=== PATIENT | female | born 1985 | race Caucasian/White ===

== ENCOUNTER 2020-06-25 19:19 | Emergency (ER) | payer MEDICARE, OTHER ==
[~2020-06-25] VITALS: Ht 147.3 cm; Wt 43.1 kg
[~2020-06-25 19:19] MED LIST: ALBU90OI6 INH; LEVSOD75 PO; OXYC5 PO; VITAMIN D-32000 UNI1 PO
[2020-06-25 20:24] LABS: BASOPHILS ABSOLUTE AUTO 0.04 K/mm3 (0.00-0.23); BASOPHILS PERCENT AUTO 0 % (0-2); EOSINOPHILS ABSOLUTE AUTO 0.19 K/mm3 (0.00-0.68); EOSINOPHILS PERCENT AUTO 2 % (0-6); Hematocrit 40.7 % (33.0-51.0); Hemoglobin 14.1 g/dL (11.5-16.0); IMMATURE GRAN ABSOLUTE AUTO 0.04 K/mm3 (0.00-0.10); IMMATURE GRAN PERCENT AUTO 0 % (0-1); LYMPHOCYTES ABSOLUTE AUTO 2.35 K/mm3 (0.84-5.20); LYMPHOCYTES PERCENT AUTO 24 % (21-46); MONOCYTES ABSOLUTE AUTO 0.47 K/mm3 (0.16-1.47); MONOCYTES PERCENT AUTO 5 % (4-13); Mean Corpuscular HGB 31.8 pg (26.0-34.0); Mean Corpuscular HGB Conc 34.6 g/dL (31.5-36.5); Mean Corpuscular Volume 92 fL (80-100); Mean Platelet Volume 8.9 fL (9.1-12.4); NEUTROPHILS ABSOLUTE AUTO 6.93 K/mm3 (1.96-9.15); NEUTROPHILS PERCENT AUTO 69 % (41-73); Platelet Count 288 K/mm3 (150-400); RDW Standard Deviation 43.3 fL (35.1-46.3); Red Blood Cell Count 4.44 M/mm3 (3.80-5.20); White Blood Cell Count 10.02 K/mm3 (4.00-11.30)
[2020-06-25] MEDS ORDERED: MONT10T PO (20:24)
[2020-06-25 20:40] LABS: Anion Gap 4 mmol/L (6-16); Blood Urea Nitrogen 8 mg/dL (8-24); Bun/Creatinine Ratio 11.5 (12.0-20.0); CO2, Blood 31 mmol/L (21-32); Calcium, Blood 9.6 mg/dL (8.5-10.1); Chloride, Blood 103 mmol/L (98-108); Creatinine, Blood 0.69 mg/dL (0.40-1.00); Glomerular Filtration Rate >60 (60-); Glucose, Blood 63 mg/dL (70-99); Potassium, Blood 3.2 mmol/L (3.5-5.5); Sodium, Blood 138 mmol/L (136-145)
== END 2020-06-25 21:45 | disposition home or self-care (01) ==
LOC: ER 19:19
PROVIDERS: Emergency Medicine
DX: K62.5 Hemorrhage of anus and rectum (principal); Z79.899 Other long term (current) drug therapy
CPT/HCPCS: 36415; 80048; 85025; 86850; 86900; 86901; 99283

== ENCOUNTER 2020-06-26 19:27 | Emergency (ER) | payer MEDICARE, OTHER ==
[~2020-06-26] VITALS: Ht 147.3 cm; Wt 43.5 kg
[~2020-06-26 19:27] MED LIST changes: +MONT10T PO
[2020-06-26 20:11] LABS: BASOPHILS ABSOLUTE AUTO 0.04 K/mm3 (0.00-0.23); BASOPHILS PERCENT AUTO 0 % (0-2); EOSINOPHILS ABSOLUTE AUTO 0.17 K/mm3 (0.00-0.68); EOSINOPHILS PERCENT AUTO 2 % (0-6); Hematocrit 35.6 % (33.0-51.0); Hemoglobin 12.4 g/dL (11.5-16.0); IMMATURE GRAN ABSOLUTE AUTO 0.04 K/mm3 (0.00-0.10); IMMATURE GRAN PERCENT AUTO 0 % (0-1); LYMPHOCYTES ABSOLUTE AUTO 2.04 K/mm3 (0.84-5.20); LYMPHOCYTES PERCENT AUTO 22 % (21-46); MONOCYTES PERCENT AUTO 5 % (4-13); Mean Corpuscular HGB 31.2 pg (26.0-34.0); Mean Corpuscular HGB Conc 34.8 g/dL (31.5-36.5); Mean Corpuscular Volume 90 fL (80-100); Mean Platelet Volume 8.9 fL (9.1-12.4); NEUTROPHILS ABSOLUTE AUTO 6.55 K/mm3 (1.96-9.15); NEUTROPHILS PERCENT AUTO 70 % (41-73); Platelet Count 268 K/mm3 (150-400); RDW Coefficient Variation 12.9 % (11.7-14.2); Red Blood Cell Count 3.97 M/mm3 (3.80-5.20); White Blood Cell Count 9.34 K/mm3 (4.00-11.30)
[2020-06-26 21:11] LABS: Alanine Aminotransfer (ALT/SGP 34 U/L (12-78); Aspartate Aminotrans (AST/SGOT 18 U/L (12-37)
[2020-06-26 21:24] LABS: Albumin/Globulin Ratio 1.2 (0.8-1.8); Alk Phos 116 U/L (50-136); Anion Gap 3 mmol/L (6-16); Bilirubin, Total 0.3 mg/dL (0.1-1.0); Blood Urea Nitrogen 9 mg/dL (8-24); Bun/Creatinine Ratio 14.2 (12.0-20.0); CO2, Blood 27 mmol/L (21-32); Calcium, Blood 8.8 mg/dL (8.5-10.1); Chloride, Blood 105 mmol/L (98-108); Creatinine, Blood 0.63 mg/dL (0.40-1.00); Globulin, Blood 3.4 g/dL (2.2-4.0); Glomerular Filtration Rate >60 (60-); Glucose, Blood 91 mg/dL (70-99); Potassium, Blood 3.4 mmol/L (3.5-5.5); Sodium, Blood 135 mmol/L (136-145); Total Protein, Blood 7.4 g/dL (6.4-8.2)
== END 2020-06-26 21:30 | disposition home or self-care (01) ==
LOC: ER 19:27
PROVIDERS: Physician Assistant
DX: K91.840 Postprocedural hemorrhage of a digestive system organ or structure following a digestive system procedure (principal); K62.5 Hemorrhage of anus and rectum; Z88.5 Allergy status to narcotic agent; Z88.8 Allergy status to other drugs, medicaments and biological substances
CPT/HCPCS: 36415; 80053; 85025; 99283; A9270-GY

== ENCOUNTER 2021-01-17 18:46 | Emergency (ER) | payer OTHER ==
[~2021-01-17] VITALS: Ht 147.3 cm; Wt 45.4 kg
== END 2021-01-17 20:06 | disposition home or self-care (01) ==
LOC: ER 18:46
DX: S50.02XA Contusion of left elbow, initial encounter (principal); Z88.8 Allergy status to other drugs, medicaments and biological substances; Z88.5 Allergy status to narcotic agent; Z79.899 Other long term (current) drug therapy; Z87.891 Personal history of nicotine dependence; W50.0XXA Accidental hit or strike by another person, initial encounter
CPT/HCPCS: 71046; 73080; 96372; 99283-25; J1885

== ENCOUNTER 2021-12-20 18:25 | Inpatient (IN) | payer OTHER ==
[~2021-12-20] VITALS: Ht 147.3 cm; Wt 39.9 kg
[2021-12-20 18:57] LABS: BASOPHILS ABSOLUTE AUTO 0.05 K/mm3 (0.00-0.23); BASOPHILS PERCENT AUTO 0 % (0-2); EOSINOPHILS ABSOLUTE AUTO 0.11 K/mm3 (0.00-0.68); EOSINOPHILS PERCENT AUTO 1 % (0-6); Hemoglobin 17.1 g/dL (11.5-16.0); IMMATURE GRAN ABSOLUTE AUTO 0.08 K/mm3 (0.00-0.10); IMMATURE GRAN PERCENT AUTO 1 % (0-1); LYMPHOCYTES ABSOLUTE AUTO 1.29 K/mm3 (0.84-5.20); LYMPHOCYTES PERCENT AUTO 9 % (21-46); MONOCYTES ABSOLUTE AUTO 0.72 K/mm3 (0.16-1.47); MONOCYTES PERCENT AUTO 5 % (4-13); Mean Corpuscular HGB 30.5 pg (26.0-34.0); Mean Corpuscular HGB Conc 34.2 g/dL (31.5-36.5); Mean Corpuscular Volume 89 fL (80-100); Mean Platelet Volume 8.6 fL (9.1-12.4); NEUTROPHILS ABSOLUTE AUTO 12.08 K/mm3 (1.96-9.15); NEUTROPHILS PERCENT AUTO 84 % (41-73); Platelet Count 327 K/mm3 (150-400); RDW Coefficient Variation 13.2 % (11.7-14.2); RDW Standard Deviation 43.4 fL (35.1-46.3); White Blood Cell Count 14.33 K/mm3 (4.00-11.30)
[2021-12-20 19:10] LABS: Albumin, Blood 4.6 g/dL (3.4-5.0); Albumin/Globulin Ratio 0.9 (0.8-1.8); Bilirubin, Total 0.4 mg/dL (0.1-1.0); Bun/Creatinine Ratio 20.3 (12.0-20.0); Calcium, Blood 10.4 mg/dL (8.5-10.1); Creatinine, Blood 1.38 mg/dL (0.40-1.00); Globulin, Blood 4.9 g/dL (2.2-4.0); Potassium, Blood 4.4 mmol/L (3.5-5.5); Total Protein, Blood 9.5 g/dL (6.4-8.2)
[2021-12-20 20:30] LABS: Magnesium, Blood 2.2 mg/dL (1.6-2.4); Phosphorus, Blood 4.9 mg/dL (2.5-4.9)
[2021-12-20 20:44] LABS: Source, Urine Clean Catch
[2021-12-20 21:03] LABS: Appearance, Urine Hazy (Clear); Bilirubin, Urine Neg (Neg); Blood, Urine 5+ (Neg); Color, Urine Yellow (P-Yellow); Glucose Qualitative, Urine Neg (Neg); Ketones, Urine Neg (Neg); Leukocyte Esterase, Urine 3+ (Neg); Nitrite, Urine Neg (Neg); Protein, Urine 2+ (Neg); Urobilinogen, Urine NORM (Normal)
[2021-12-20 21:14] LABS: Hyaline Casts TNTC /lpf (0-2)
[2021-12-20 21:15] LABS: Bacteria Mod /hpf; Renal Epithelial Mod /hpf (0-Rare); Squamous Epithelial Cells Few /hpf (Few); White Blood Cells, Urine 50-100 /hpf (0-5)
[2021-12-20 21:16] LABS: Transitional Epithelial Cells Rare /hpf (0-Rare)
--- NOTE | 2021-12-21 02:10 | NUR ---
NOTE CALLED DR. ASKEW ABOUT PT BP OF 85/46. ORDER GIVEN TO GIVE PT A 1 LITER BOLUS OF NS PER
--- NOTE | 2021-12-21 03:31 | NUR ---
NOTE NS BOLUS COMPLETE. BLOOD PRESSURE UP TO 88/49. PT UP TO BEDSIDE COMMODE WITHOUT INCIDENT WITH A STANDBY ASSIST.
--- NOTE | 2021-12-21 04:40 | NUR ---
SHIFT SUMMARY REPORT FROM MATTY GAUTAM AT 2237. PT TO ROOM AROUND 2300. PT ADMITTED FOR LEG MUSCLE SPASMS AND A UTI. PT HAS NS AT 150/HR. PT BP HAS BEEN RUNNING LOW, DR. VICENTE (SEE PREVIOUS NOTE). PT IS PLEASANT AND COOPERATIVE WITH CARE. PT HAS NOT EATEN ANYTHING OF SUBSTANCE IN AT LEAST A DAY. SHE IS STARTING TO FEEL HUNGRY BUT IS AFRAID TO EAT BECAUSE OF HER DIARRHEA THAT HAS BEEN HAPPENING FOR THE LAST MONTH. PT HAS OSTOMY AND A HX OF CANCER. PT HAS CALL LIGHT WITHIN HER REACH AND HAS NO COMPLAINTS AT THIS TIME.
[2021-12-21 06:07] LABS: Magnesium, Blood 2.2 mg/dL (1.6-2.4)
[2021-12-21 06:11] LABS: Bun/Creatinine Ratio 21.1 (12.0-20.0); Calcium, Blood 7.7 mg/dL (8.5-10.1); Creatinine, Blood 0.9 mg/dL (0.40-1.00); Potassium, Blood 3.8 mmol/L (3.5-5.5)
--- NOTE | 2021-12-21 18:09 | NUR ---
SUMMARY PT SITTING UP IN BED EATING DINNER, PT HAS HAD A POOR APPETITE T/O THE DAY, MED PER EMAR FOR LOW GRADE TEMP AND PAIN, PT INDEP TO BSC, PLEASANT AND COOPERATIVE WITH CARE, WILL CONT TO MONITOR
[2021-12-22 05:22] LABS: Hematocrit 40.8 % (33.0-51.0); Mean Corpuscular HGB 30.4 pg (26.0-34.0); Mean Corpuscular HGB Conc 34.3 g/dL (31.5-36.5); Mean Corpuscular Volume 89 fL (80-100); Platelet Count 229 K/mm3 (150-400); RDW Coefficient Variation 13.2 % (11.7-14.2); RDW Standard Deviation 43.2 fL (35.1-46.3); Red Blood Cell Count 4.61 M/mm3 (3.80-5.20); White Blood Cell Count 5.89 K/mm3 (4.00-11.30)
[2021-12-22 05:59] LABS: Albumin, Blood 3.2 g/dL (3.4-5.0); Anion Gap 10 mmol/L (6-16); Blood Urea Nitrogen 18 mg/dL (8-24); Bun/Creatinine Ratio 22.4 (12.0-20.0); CO2, Blood 22 mmol/L (21-32); Calcium, Blood 9.3 mg/dL (8.5-10.1); Chloride, Blood 106 mmol/L (98-108); Glomerular Filtration Rate 98 (60-); Glucose, Blood 56 mg/dL (70-99); Phosphorus, Blood 2.3 mg/dL (2.5-4.9); Potassium, Blood 3.5 mmol/L (3.5-5.5); Sodium, Blood 138 mmol/L (136-145)
--- NOTE | 2021-12-22 06:07 | NUR ---
SHIFT SUMMARY PATIENT DENIES PAIN, NAUSEA, AND SHORTNESS OF BREATH. PATIENT IS IND IN THE ROOM. PATIENT MANAGES HER OWN OSTOMY. PATIENT SLEPT MOST OF SHIFT. PATIENT HAS POOR PO INTAKE. PATIENT IS PLEASANT AND COOPERATIVE WITH CARE.
[2021-12-22] MEDS ORDERED: MULVITA PO (12:03)
[2021-12-22] MEDS ORDERED: Acetaminophen325 M1 PO (12:03)
[2021-12-22] MEDS ORDERED: LOPE2C PO (12:04)
--- NOTE | 2021-12-22 14:12 | NUR ---
SUMMARY/DISCHARGE PT DISCHARGED TO HOME, PT VERBALZED UNDERSTANDING OF DISCHARGE INSTRUCTIONS REGARDING MEDS AND FOLLOW UP, PT TAKEN OUT SAFELY VIA WHEELCHAIR
== END 2021-12-22 12:51 | disposition home or self-care (01) | DRG 641 ==
LOC: ER 18:25 → MEDS 18:26
PROVIDERS: Emergency Medicine; Internal Medicine; ADMIT Internal Medicine
DX: E87.1 Hypo-osmolality and hyponatremia (principal); N39.0 Urinary tract infection, site not specified; R65.10 Systemic inflammatory response syndrome (SIRS) of non-infectious origin without acute organ dysfunction; N17.9 Acute kidney failure, unspecified; E86.0 Dehydration; R51.9 Headache, unspecified; R19.7 Diarrhea, unspecified; E89.0 Postprocedural hypothyroidism; Z87.891 Personal history of nicotine dependence; Z85.038 Personal history of other malignant neoplasm of large intestine; Z88.5 Allergy status to narcotic agent; Z90.49 Acquired absence of other specified parts of digestive tract; Z88.8 Allergy status to other drugs, medicaments and biological substances; Z79.899 Other long term (current) drug therapy; Z79.51 Long term (current) use of inhaled steroids; Z86.010 Personal history of colon polyps; Z85.850 Personal history of malignant neoplasm of thyroid; Z85.841 Personal history of malignant neoplasm of brain; Z98.890 Other specified postprocedural states
CPT/HCPCS: 36415; 80048; 80053; 80069; 81001; 83735; 84100; 85025; 85027; 87086; 96365; 96375; 99285-25; A9270; G0378; J0696; J2405; J3360; J3475; J7030

== ENCOUNTER 2022-02-02 17:55 | Emergency (ER) | payer OTHER ==
[~2022-02-02] VITALS: Ht 147.3 cm; Wt 35.4 kg
[~2022-02-02 17:55] MED LIST changes: +Acetaminophen325 M1 PO; +LOPE2C PO; +MULVITA PO
[2022-02-02 18:31] LABS: BASOPHILS ABSOLUTE AUTO 0.03 K/mm3 (0.00-0.23); BASOPHILS PERCENT AUTO 0 % (0-2); EOSINOPHILS ABSOLUTE AUTO 0.15 K/mm3 (0.00-0.68); EOSINOPHILS PERCENT AUTO 2 % (0-6); Hemoglobin 13.8 g/dL (11.5-16.0); IMMATURE GRAN ABSOLUTE AUTO 0.03 K/mm3 (0.00-0.10); IMMATURE GRAN PERCENT AUTO 0 % (0-1); LYMPHOCYTES ABSOLUTE AUTO 2.36 K/mm3 (0.84-5.20); LYMPHOCYTES PERCENT AUTO 24 % (21-46); MONOCYTES ABSOLUTE AUTO 0.36 K/mm3 (0.16-1.47); MONOCYTES PERCENT AUTO 4 % (4-13); Mean Corpuscular HGB 30.5 pg (26.0-34.0); Mean Corpuscular HGB Conc 34.5 g/dL (31.5-36.5); Mean Corpuscular Volume 88 fL (80-100); Mean Platelet Volume 8.7 fL (9.1-12.4); NEUTROPHILS ABSOLUTE AUTO 7.07 K/mm3 (1.96-9.15); NEUTROPHILS PERCENT AUTO 71 % (41-73); Platelet Count 280 K/mm3 (150-400); RDW Coefficient Variation 13.5 % (11.7-14.2); RDW Standard Deviation 43.8 fL (35.1-46.3); Red Blood Cell Count 4.53 M/mm3 (3.80-5.20)
[2022-02-02 18:58] LABS: Albumin, Blood 3.6 g/dL (3.4-5.0); Bilirubin, Total 0.5 mg/dL (0.1-1.0); Bun/Creatinine Ratio 19.4 (12.0-20.0); Calcium, Blood 8.8 mg/dL (8.5-10.1); Creatinine, Blood 0.83 mg/dL (0.40-1.00); Globulin, Blood 3.7 g/dL (2.2-4.0); Potassium, Blood 4.5 mmol/L (3.5-5.5); Total Protein, Blood 7.3 g/dL (6.4-8.2)
[2022-02-02 19:54] LABS: Appearance, Urine Clear (Clear); Bilirubin, Urine Neg (Neg); Blood, Urine Neg (Neg); Color, Urine Yellow (P-Yellow); Glucose Qualitative, Urine Neg (Neg); Ketones, Urine Neg (Neg); Leukocyte Esterase, Urine Neg (Neg); Nitrite, Urine Neg (Neg); Protein, Urine Neg (Neg); Source, Urine Clean Catch; Specific Gravity, Urine 1.015 (1.003-1.022); Urobilinogen, Urine NORM (Normal)
== END 2022-02-02 21:46 | disposition home or self-care (01) ==
LOC: ER 17:55
PROVIDERS: Student in an Organized Health Care Education/Training Program
DX: E86.0 Dehydration (principal); Z88.5 Allergy status to narcotic agent; Z88.8 Allergy status to other drugs, medicaments and biological substances; Z79.899 Other long term (current) drug therapy; Z87.891 Personal history of nicotine dependence
CPT/HCPCS: 36415; 80053; 81003; 83690; 85025; J7030

== ENCOUNTER 2022-02-15 15:38 | Emergency (ER) | payer OTHER ==
[~2022-02-15] VITALS: Ht 147.3 cm; Wt 40.8 kg
[2022-02-15 16:49] LABS: BASOPHILS ABSOLUTE AUTO 0.02 K/mm3 (0.00-0.23); BASOPHILS PERCENT AUTO 0 % (0-2); EOSINOPHILS ABSOLUTE AUTO 0.06 K/mm3 (0.00-0.68); EOSINOPHILS PERCENT AUTO 1 % (0-6); Hematocrit 46.9 % (33.0-51.0); Hemoglobin 16.6 g/dL (11.5-16.0); IMMATURE GRAN ABSOLUTE AUTO 0.04 K/mm3 (0.00-0.10); IMMATURE GRAN PERCENT AUTO 1 % (0-1); LYMPHOCYTES ABSOLUTE AUTO 2.18 K/mm3 (0.84-5.20); LYMPHOCYTES PERCENT AUTO 30 % (21-46); MONOCYTES ABSOLUTE AUTO 0.35 K/mm3 (0.16-1.47); MONOCYTES PERCENT AUTO 5 % (4-13); Mean Corpuscular HGB 30.3 pg (26.0-34.0); Mean Corpuscular HGB Conc 35.4 g/dL (31.5-36.5); Mean Corpuscular Volume 86 fL (80-100); Mean Platelet Volume 9.2 fL (9.1-12.4); NEUTROPHILS ABSOLUTE AUTO 4.55 K/mm3 (1.96-9.15); NEUTROPHILS PERCENT AUTO 63 % (41-73); Platelet Count 282 K/mm3 (150-400); RDW Coefficient Variation 12.9 % (11.7-14.2); RDW Standard Deviation 40.4 fL (35.1-46.3); Red Blood Cell Count 5.48 M/mm3 (3.80-5.20)
[2022-02-15 17:24] LABS: Albumin/Globulin Ratio 1.1 (0.8-1.8); Bilirubin, Total 0.6 mg/dL (0.1-1.0); Bun/Creatinine Ratio 20.8 (12.0-20.0); Creatinine, Blood 1.06 mg/dL (0.40-1.00); Globulin, Blood 4.5 g/dL (2.2-4.0); Potassium, Blood 4.3 mmol/L (3.5-5.5); Total Protein, Blood 9.5 g/dL (6.4-8.2)
[2022-02-16] MEDS ORDERED: ONDA4ODT MM (02:29)
[2022-02-16] MEDS ORDERED: METO10 PO (02:29)
== END 2022-02-16 02:45 | disposition home or self-care (01) ==
LOC: ER 15:38
PROVIDERS: Student in an Organized Health Care Education/Training Program
DX: N17.9 Acute kidney failure, unspecified (principal); E86.0 Dehydration; E16.2 Hypoglycemia, unspecified; Z88.5 Allergy status to narcotic agent; Z88.8 Allergy status to other drugs, medicaments and biological substances; Z79.899 Other long term (current) drug therapy; Z87.891 Personal history of nicotine dependence
CPT/HCPCS: 36415; 80053; 82947; 83735; 85025; 96361; 96365; 96375; 99284-25; J1885; J2405; J3475; J7030; J7042

== ENCOUNTER 2022-03-21 04:42 | Day surgery (SDC) | payer OTHER ==
[~2022-03-21 04:42] MED LIST changes: +METO10 PO; +ONDA4ODT MM; +ONDA4ODT SL
[2022-03-21] MEDS ORDERED: MULVITA PO (10:17)
[2022-03-21] MEDS ORDERED: NYSTRIT TOP (10:17)
[2022-03-21] MEDS ORDERED: VITAMIN B-1250 MCG PO (10:17)
[2022-03-21] MEDS ORDERED: DIPATR PO (10:18)
== END 2022-03-21 10:06 | disposition home or self-care (01) ==
LOC: ATC 04:42
DX: E86.0 Dehydration (principal); Z93.2 Ileostomy status
CPT/HCPCS: 96360; J7030

== ENCOUNTER 2022-03-23 02:23 | Day surgery (SDC) | payer OTHER ==
[~2022-03-23 02:23] MED LIST changes: +DIPATR PO; +NYSTRIT TOP; +VITAMIN B-1250 MCG PO
== END 2022-03-23 10:58 | disposition home or self-care (01) ==
LOC: ATC 02:23
DX: E86.0 Dehydration (principal); Z93.2 Ileostomy status
CPT/HCPCS: J7030

== ENCOUNTER 2022-03-28 01:25 | Day surgery (SDC) | payer OTHER | END 2022-03-28 10:55 | disposition home or self-care (01) | LOC: ATC 01:25 | DX: E86.0 Dehydration (principal); Z93.2 Ileostomy status | CPT/HCPCS: J7030 ==

== ENCOUNTER 2022-03-30 01:51 | Day surgery (SDC) | payer OTHER | END 2022-03-30 10:41 | disposition home or self-care (01) | LOC: ATC 01:51 | DX: E86.0 Dehydration (principal); Z93.2 Ileostomy status | CPT/HCPCS: J7030 ==

== ENCOUNTER 2022-04-11 00:25 | Day surgery (SDC) | payer OTHER | END 2022-04-11 12:13 | disposition home or self-care (01) | LOC: ATC 00:25 | DX: E86.0 Dehydration (principal); Z93.2 Ileostomy status | CPT/HCPCS: J7030 ==

== ENCOUNTER 2022-04-13 00:32 | Day surgery (SDC) | payer OTHER ==
[2022-04-13 10:25] LABS: BASOPHILS ABSOLUTE AUTO 0.03 K/mm3 (0.00-0.23); BASOPHILS PERCENT AUTO 0 % (0-2); EOSINOPHILS ABSOLUTE AUTO 0.11 K/mm3 (0.00-0.68); EOSINOPHILS PERCENT AUTO 2 % (0-6); Hematocrit 33.1 % (33.0-51.0); Hemoglobin 11.5 g/dL (11.5-16.0); IMMATURE GRAN ABSOLUTE AUTO 0.03 K/mm3 (0.00-0.10); IMMATURE GRAN PERCENT AUTO 0 % (0-1); LYMPHOCYTES ABSOLUTE AUTO 2.01 K/mm3 (0.84-5.20); LYMPHOCYTES PERCENT AUTO 28 % (21-46); MONOCYTES ABSOLUTE AUTO 0.35 K/mm3 (0.16-1.47); MONOCYTES PERCENT AUTO 5 % (4-13); Mean Corpuscular HGB 30.7 pg (26.0-34.0); Mean Corpuscular HGB Conc 34.7 g/dL (31.5-36.5); Mean Corpuscular Volume 89 fL (80-100); Mean Platelet Volume 9.1 fL (9.1-12.4); NEUTROPHILS ABSOLUTE AUTO 4.64 K/mm3 (1.96-9.15); NEUTROPHILS PERCENT AUTO 65 % (41-73); Platelet Count 272 K/mm3 (150-400); RDW Coefficient Variation 14.3 % (11.7-14.2); RDW Standard Deviation 46.5 fL (35.1-46.3); Red Blood Cell Count 3.74 M/mm3 (3.80-5.20); White Blood Cell Count 7.17 K/mm3 (4.00-11.30)
[2022-04-13 11:03] LABS: Albumin, Blood 3.4 g/dL (3.4-5.0); Bilirubin, Total 0.4 mg/dL (0.1-1.0); Calcium, Blood 8.9 mg/dL (8.5-10.1); Creatinine, Blood 0.62 mg/dL (0.40-1.00); Globulin, Blood 3.3 g/dL (2.2-4.0); Potassium, Blood 3.8 mmol/L (3.5-5.5); Total Protein, Blood 6.7 g/dL (6.4-8.2)
--- NOTE | 2022-04-13 11:28 | NUR ---
LAB RESULTS FROM TODAY FAXED TO DR. DOMINGUEZ'S OFFICE.
== END 2022-04-13 10:29 | disposition home or self-care (01) ==
LOC: ATC 00:32
PROVIDERS: Colon & Rectal Surgery
DX: E86.0 Dehydration (principal); Z93.2 Ileostomy status
CPT/HCPCS: 80053; 85025; J7030

== ENCOUNTER 2022-04-20 00:19 | Day surgery (SDC) | payer OTHER ==
[2022-04-20 14:43] LABS: BASOPHILS ABSOLUTE AUTO 0.03 K/mm3 (0.00-0.23); BASOPHILS PERCENT AUTO 0 % (0-2); EOSINOPHILS ABSOLUTE AUTO 0.12 K/mm3 (0.00-0.68); EOSINOPHILS PERCENT AUTO 2 % (0-6); Hemoglobin 11.3 g/dL (11.5-16.0); IMMATURE GRAN ABSOLUTE AUTO 0.04 K/mm3 (0.00-0.10); IMMATURE GRAN PERCENT AUTO 1 % (0-1); LYMPHOCYTES ABSOLUTE AUTO 2.22 K/mm3 (0.84-5.20); LYMPHOCYTES PERCENT AUTO 28 % (21-46); MONOCYTES ABSOLUTE AUTO 0.43 K/mm3 (0.16-1.47); MONOCYTES PERCENT AUTO 6 % (4-13); Mean Corpuscular HGB Conc 34.2 g/dL (31.5-36.5); Mean Corpuscular Volume 90 fL (80-100); Mean Platelet Volume 8.9 fL (9.1-12.4); NEUTROPHILS ABSOLUTE AUTO 5.02 K/mm3 (1.96-9.15); NEUTROPHILS PERCENT AUTO 64 % (41-73); Platelet Count 258 K/mm3 (150-400); RDW Standard Deviation 46.8 fL (35.1-46.3); Red Blood Cell Count 3.65 M/mm3 (3.80-5.20); White Blood Cell Count 7.86 K/mm3 (4.00-11.30)
[2022-04-20 15:04] LABS: Albumin, Blood 3.4 g/dL (3.4-5.0); Bilirubin, Total 0.3 mg/dL (0.1-1.0); Bun/Creatinine Ratio 6.6 (12.0-20.0); Calcium, Blood 8.6 mg/dL (8.5-10.1); Creatinine, Blood 0.91 mg/dL (0.40-1.00); Globulin, Blood 3.3 g/dL (2.2-4.0); Potassium, Blood 3.6 mmol/L (3.5-5.5); Total Protein, Blood 6.7 g/dL (6.4-8.2)
== END 2022-04-20 14:45 | disposition home or self-care (01) ==
LOC: ATC 00:19
PROVIDERS: Colon & Rectal Surgery
DX: E86.0 Dehydration (principal); Z93.2 Ileostomy status
CPT/HCPCS: 80053; 85025; J7030

== ENCOUNTER 2022-04-25 00:17 | Day surgery (SDC) | payer OTHER | END 2022-04-25 10:44 | disposition home or self-care (01) | LOC: ATC 00:17 | DX: E86.0 Dehydration (principal); Z93.2 Ileostomy status | CPT/HCPCS: 96360; J7030 ==

== ENCOUNTER 2022-05-05 00:52 | Day surgery (SDC) | payer OTHER ==
--- NOTE | 2022-05-05 12:03 | NUR ---
Pt did not show for her appointment at 0930 in the [facility] today.
[2022-05-08] MEDS ORDERED: AMOCLA875 PO (12:38)
[2022-05-08] MEDS ORDERED: AMOCLA600S PO ×2 (15:23→16:57)
== END 2022-05-05 23:59 | disposition home or self-care (01) ==
LOC: ATC 00:52
DX: E86.0 Dehydration (principal); Z93.2 Ileostomy status; K21.9 Gastro-esophageal reflux disease without esophagitis; Z87.891 Personal history of nicotine dependence; Z79.899 Other long term (current) drug therapy
CPT/HCPCS: J7030

== ENCOUNTER 2022-05-09 02:27 | Day surgery (SDC) | payer OTHER ==
[~2022-05-09 02:27] MED LIST changes: +AMOCLA600S PO; +AMOCLA875 PO
== END 2022-05-09 10:45 | disposition home or self-care (01) ==
LOC: ATC 02:27
DX: E86.0 Dehydration (principal); Z93.2 Ileostomy status
CPT/HCPCS: 96360; J1642; J7030

== ENCOUNTER 2022-05-11 13:21 | Emergency (ER) | payer OTHER ==
[~2022-05-11] VITALS: Ht 147.3 cm; Wt 39.9 kg
[2022-05-11 13:57] LABS: BASOPHILS ABSOLUTE AUTO 0.06 K/mm3 (0.00-0.23); BASOPHILS PERCENT AUTO 1 % (0-2); EOSINOPHILS ABSOLUTE AUTO 0.38 K/mm3 (0.00-0.68); EOSINOPHILS PERCENT AUTO 5 % (0-6); Hematocrit 40.6 % (33.0-51.0); Hemoglobin 13.8 g/dL (11.5-16.0); IMMATURE GRAN ABSOLUTE AUTO 0.06 K/mm3 (0.00-0.10); IMMATURE GRAN PERCENT AUTO 1 % (0-1); LYMPHOCYTES ABSOLUTE AUTO 2.38 K/mm3 (0.84-5.20); LYMPHOCYTES PERCENT AUTO 31 % (21-46); MONOCYTES ABSOLUTE AUTO 0.37 K/mm3 (0.16-1.47); MONOCYTES PERCENT AUTO 5 % (4-13); Mean Corpuscular HGB 30.4 pg (26.0-34.0); Mean Corpuscular Volume 89 fL (80-100); Mean Platelet Volume 8.7 fL (9.1-12.4); NEUTROPHILS ABSOLUTE AUTO 4.56 K/mm3 (1.96-9.15); NEUTROPHILS PERCENT AUTO 58 % (41-73); Platelet Count 367 K/mm3 (150-400); RDW Coefficient Variation 13.5 % (11.7-14.2); RDW Standard Deviation 44.4 fL (35.1-46.3); Red Blood Cell Count 4.54 M/mm3 (3.80-5.20); White Blood Cell Count 7.81 K/mm3 (4.00-11.30)
[2022-05-11 14:16] LABS: Albumin/Globulin Ratio 0.9 (0.8-1.8); Bilirubin, Total 0.2 mg/dL (0.1-1.0); Bun/Creatinine Ratio 23.1 (12.0-20.0); C-REACTIVE PROTEIN, EXT RANGE 0.527 mg/dL (0.000-0.300); Calcium, Blood 9.8 mg/dL (8.5-10.1); Creatinine, Blood 0.82 mg/dL (0.40-1.00); Globulin, Blood 4.6 g/dL (2.2-4.0); Potassium, Blood 3.9 mmol/L (3.5-5.5); Total Protein, Blood 8.6 g/dL (6.4-8.2)
== END 2022-05-11 17:11 | disposition home or self-care (01) ==
LOC: ER 13:21
PROVIDERS: Physician Assistant
DX: L02.31 Cutaneous abscess of buttock (principal); Z79.890 Hormone replacement therapy; Z79.899 Other long term (current) drug therapy; Z88.5 Allergy status to narcotic agent; Z88.8 Allergy status to other drugs, medicaments and biological substances; Z87.891 Personal history of nicotine dependence
CPT/HCPCS: 36415; 80053; 85025; 86140; 96365; 99283-25; J0690

== ENCOUNTER 2022-05-14 00:42 | Day surgery (SDC) | payer OTHER ==
[2022-05-14 09:51] LABS: BASOPHILS ABSOLUTE AUTO 0.05 K/mm3 (0.00-0.23); BASOPHILS PERCENT AUTO 1 % (0-2); EOSINOPHILS ABSOLUTE AUTO 0.37 K/mm3 (0.00-0.68); EOSINOPHILS PERCENT AUTO 4 % (0-6); Hematocrit 41.8 % (33.0-51.0); Hemoglobin 14.5 g/dL (11.5-16.0); IMMATURE GRAN ABSOLUTE AUTO 0.07 K/mm3 (0.00-0.10); IMMATURE GRAN PERCENT AUTO 1 % (0-1); LYMPHOCYTES ABSOLUTE AUTO 3.57 K/mm3 (0.84-5.20); LYMPHOCYTES PERCENT AUTO 38 % (21-46); MONOCYTES ABSOLUTE AUTO 0.44 K/mm3 (0.16-1.47); MONOCYTES PERCENT AUTO 5 % (4-13); Mean Corpuscular HGB 30.7 pg (26.0-34.0); Mean Corpuscular HGB Conc 34.7 g/dL (31.5-36.5); Mean Corpuscular Volume 89 fL (80-100); Mean Platelet Volume 8.8 fL (9.1-12.4); NEUTROPHILS ABSOLUTE AUTO 5.03 K/mm3 (1.96-9.15); NEUTROPHILS PERCENT AUTO 53 % (41-73); Platelet Count 404 K/mm3 (150-400); RDW Coefficient Variation 13.2 % (11.7-14.2); RDW Standard Deviation 43.3 fL (35.1-46.3); Red Blood Cell Count 4.72 M/mm3 (3.80-5.20); White Blood Cell Count 9.53 K/mm3 (4.00-11.30)
[2022-05-14 10:47] LABS: Bilirubin, Total 0.5 mg/dL (0.1-1.0); Potassium, Blood 4.4 mmol/L (3.5-5.5)
[2022-05-14 19:25] LABS: Albumin, Blood 4.1 g/dL (3.4-5.0); Bun/Creatinine Ratio 22.3 (12.0-20.0); Calcium, Blood 9.7 mg/dL (8.5-10.1); Creatinine, Blood 0.94 mg/dL (0.40-1.00); Globulin, Blood 4.3 g/dL (2.2-4.0); Total Protein, Blood 8.4 g/dL (6.4-8.2)
== END 2022-05-14 10:32 | disposition home or self-care (01) ==
LOC: ATC 00:42
PROVIDERS: Colon & Rectal Surgery
DX: R19.7 Diarrhea, unspecified (principal); Z93.2 Ileostomy status; D50.9 Iron deficiency anemia, unspecified
CPT/HCPCS: 80053; 85025; 96360; J1642; J7030

== ENCOUNTER 2022-05-16 02:16 | Day surgery (SDC) | payer OTHER | END 2022-05-16 10:31 | disposition home or self-care (01) | LOC: ATC 02:16 | DX: R19.7 Diarrhea, unspecified (principal); Z93.2 Ileostomy status; Z87.891 Personal history of nicotine dependence; Z88.5 Allergy status to narcotic agent; Z88.8 Allergy status to other drugs, medicaments and biological substances | CPT/HCPCS: 96360; J1642; J7030 ==

== ENCOUNTER 2022-05-23 09:40 | Day surgery (SDC) | payer OTHER ==
--- NOTE | 2022-05-18 10:34 | NUR ---
Pt rescheduled today's appointment for tomorrow.
--- NOTE | 2022-05-19 12:41 | NUR ---
NO CALL, NO SHOW FOR TODAY
== END 2022-05-23 11:14 | disposition home or self-care (01) ==
LOC: ATC 09:40
DX: D12.6 Benign neoplasm of colon, unspecified (principal); E03.9 Hypothyroidism, unspecified; Z88.5 Allergy status to narcotic agent; Z88.8 Allergy status to other drugs, medicaments and biological substances; Z91.048 Other nonmedicinal substance allergy status; Z79.899 Other long term (current) drug therapy; Z87.891 Personal history of nicotine dependence
CPT/HCPCS: 96360; J1642; J7030; J7120

== ENCOUNTER 2022-05-28 00:23 | Day surgery (SDC) | payer OTHER ==
[2022-05-28 12:07] LABS: BASOPHILS ABSOLUTE AUTO 0.03 K/mm3 (0.00-0.23); BASOPHILS PERCENT AUTO 0 % (0-2); EOSINOPHILS ABSOLUTE AUTO 0.12 K/mm3 (0.00-0.68); EOSINOPHILS PERCENT AUTO 1 % (0-6); Hematocrit 33.1 % (33.0-51.0); Hemoglobin 11.2 g/dL (11.5-16.0); IMMATURE GRAN ABSOLUTE AUTO 0.03 K/mm3 (0.00-0.10); IMMATURE GRAN PERCENT AUTO 0 % (0-1); LYMPHOCYTES ABSOLUTE AUTO 2.25 K/mm3 (0.84-5.20); LYMPHOCYTES PERCENT AUTO 26 % (21-46); MONOCYTES ABSOLUTE AUTO 0.37 K/mm3 (0.16-1.47); MONOCYTES PERCENT AUTO 4 % (4-13); Mean Corpuscular HGB 30.4 pg (26.0-34.0); Mean Corpuscular HGB Conc 33.8 g/dL (31.5-36.5); Mean Corpuscular Volume 90 fL (80-100); Mean Platelet Volume 9.3 fL (9.1-12.4); NEUTROPHILS ABSOLUTE AUTO 5.89 K/mm3 (1.96-9.15); NEUTROPHILS PERCENT AUTO 68 % (41-73); Platelet Count 318 K/mm3 (150-400); RDW Coefficient Variation 13.6 % (11.7-14.2); RDW Standard Deviation 45.2 fL (35.1-46.3); Red Blood Cell Count 3.68 M/mm3 (3.80-5.20); White Blood Cell Count 8.69 K/mm3 (4.00-11.30)
[2022-05-28 12:13] LABS: Albumin, Blood 3.9 g/dL (3.4-5.0); Albumin/Globulin Ratio 1.1 (0.8-1.8); Bilirubin, Total 0.3 mg/dL (0.1-1.0); Calcium, Blood 9.1 mg/dL (8.5-10.1); Creatinine, Blood 0.83 mg/dL (0.40-1.00); Globulin, Blood 3.4 g/dL (2.2-4.0); Potassium, Blood 4.1 mmol/L (3.5-5.5); Total Protein, Blood 7.3 g/dL (6.4-8.2)
== END 2022-05-28 12:15 | disposition home or self-care (01) ==
LOC: ATC 00:23
PROVIDERS: Colon & Rectal Surgery
DX: R19.5 Other fecal abnormalities (principal); Z93.2 Ileostomy status
CPT/HCPCS: 80053; 85025; 96360; J1642; J7120

== ENCOUNTER 2022-05-30 03:47 | Day surgery (SDC) | payer OTHER ==
[2022-05-30 09:58] LABS: BASOPHILS ABSOLUTE AUTO 0.03 K/mm3 (0.00-0.23); BASOPHILS PERCENT AUTO 1 % (0-2); EOSINOPHILS ABSOLUTE AUTO 0.22 K/mm3 (0.00-0.68); EOSINOPHILS PERCENT AUTO 4 % (0-6); Hematocrit 33.9 % (33.0-51.0); Hemoglobin 11.3 g/dL (11.5-16.0); IMMATURE GRAN ABSOLUTE AUTO 0.02 K/mm3 (0.00-0.10); IMMATURE GRAN PERCENT AUTO 0 % (0-1); LYMPHOCYTES ABSOLUTE AUTO 1.85 K/mm3 (0.84-5.20); LYMPHOCYTES PERCENT AUTO 30 % (21-46); MONOCYTES ABSOLUTE AUTO 0.19 K/mm3 (0.16-1.47); MONOCYTES PERCENT AUTO 3 % (4-13); Mean Corpuscular HGB 30.5 pg (26.0-34.0); Mean Corpuscular HGB Conc 33.3 g/dL (31.5-36.5); Mean Corpuscular Volume 91 fL (80-100); Mean Platelet Volume 8.8 fL (9.1-12.4); NEUTROPHILS ABSOLUTE AUTO 3.77 K/mm3 (1.96-9.15); NEUTROPHILS PERCENT AUTO 62 % (41-73); Platelet Count 309 K/mm3 (150-400); RDW Standard Deviation 46.8 fL (35.1-46.3); Red Blood Cell Count 3.71 M/mm3 (3.80-5.20); White Blood Cell Count 6.08 K/mm3 (4.00-11.30)
[2022-05-30 10:25] LABS: Albumin, Blood 3.6 g/dL (3.4-5.0); Albumin/Globulin Ratio 1.1 (0.8-1.8); Bilirubin, Total 0.2 mg/dL (0.1-1.0); Bun/Creatinine Ratio 19.4 (12.0-20.0); Calcium, Blood 8.8 mg/dL (8.5-10.1); Creatinine, Blood 0.78 mg/dL (0.40-1.00); Globulin, Blood 3.4 g/dL (2.2-4.0); Potassium, Blood 3.8 mmol/L (3.5-5.5)
== END 2022-05-30 10:59 | disposition home or self-care (01) ==
LOC: ATC 03:47
PROVIDERS: Family Medicine
DX: K94.19 Other complications of enterostomy (principal)
CPT/HCPCS: 80053; 85025; 96360; J1642; J7120

== ENCOUNTER 2022-06-01 01:44 | Day surgery (SDC) | payer OTHER | END 2022-06-01 10:48 | disposition home or self-care (01) | LOC: ATC 01:44 | DX: K94.19 Other complications of enterostomy (principal) | CPT/HCPCS: 96360; J1642; J7120 ==

== ENCOUNTER 2022-06-04 01:01 | Day surgery (SDC) | payer OTHER | END 2022-06-04 14:37 | disposition home or self-care (01) | LOC: ATC 01:01 | DX: K94.19 Other complications of enterostomy (principal) | CPT/HCPCS: 96360; J1642; J7120 ==

== ENCOUNTER 2022-06-11 01:01 | Day surgery (SDC) | payer OTHER ==
[2022-06-11 12:11] LABS: Alanine Aminotransfer (ALT/SGP 37 U/L (12-78); Albumin, Blood 3.2 g/dL (3.4-5.0); Albumin/Globulin Ratio 1.1 (0.8-1.8); Alk Phos 106 U/L (50-136); Anion Gap Unable to Calculate mmol/L (6-16); Aspartate Aminotrans (AST/SGOT 20 U/L (12-37); Bilirubin, Total 0.3 mg/dL (0.1-1.0); Blood Urea Nitrogen 6 mg/dL (8-24); Bun/Creatinine Ratio 8.9 (12.0-20.0); CO2, Blood 29 mmol/L (21-32); Calcium, Blood 8.9 mg/dL (8.5-10.1); Chloride, Blood 109 mmol/L (98-108); Creatinine, Blood 0.68 mg/dL (0.40-1.00); Globulin, Blood 2.8 g/dL (2.2-4.0); Glomerular Filtration Rate 116 (60-); Glucose, Blood 62 mg/dL (70-99); Potassium, Blood 4.2 mmol/L (3.5-5.5); Sodium, Blood 137 mmol/L (136-145)
[2022-06-11 13:20] LABS: BASOPHILS ABSOLUTE AUTO 0.03 K/mm3 (0.00-0.23); BASOPHILS PERCENT AUTO 1 % (0-2); EOSINOPHILS ABSOLUTE AUTO 0.14 K/mm3 (0.00-0.68); EOSINOPHILS PERCENT AUTO 3 % (0-6); Hematocrit 31.8 % (33.0-51.0); Hemoglobin 10.3 g/dL (11.5-16.0); IMMATURE GRAN ABSOLUTE AUTO 0.01 K/mm3 (0.00-0.10); IMMATURE GRAN PERCENT AUTO 0 % (0-1); LYMPHOCYTES ABSOLUTE AUTO 1.88 K/mm3 (0.84-5.20); LYMPHOCYTES PERCENT AUTO 35 % (21-46); MONOCYTES PERCENT AUTO 6 % (4-13); Mean Corpuscular HGB 30.3 pg (26.0-34.0); Mean Corpuscular HGB Conc 32.4 g/dL (31.5-36.5); Mean Corpuscular Volume 94 fL (80-100); NEUTROPHILS ABSOLUTE AUTO 3.02 K/mm3 (1.96-9.15); NEUTROPHILS PERCENT AUTO 56 % (41-73); Platelet Count 210 K/mm3 (150-400); RDW Coefficient Variation 13.9 % (11.7-14.2); RDW Standard Deviation 47.3 fL (35.1-46.3); White Blood Cell Count 5.38 K/mm3 (4.00-11.30)
== END 2022-06-11 10:50 | disposition home or self-care (01) ==
LOC: ATC 01:01
PROVIDERS: Colon & Rectal Surgery
DX: K94.19 Other complications of enterostomy (principal)
CPT/HCPCS: 80053; 85025; J1642; J7120

== ENCOUNTER 2022-06-15 01:11 | Day surgery (SDC) | payer OTHER ==
[2022-06-15 09:49] VITALS: BP 104/82
== END 2022-06-15 10:44 | disposition home or self-care (01) ==
LOC: ATC 01:11
DX: K94.19 Other complications of enterostomy (principal)
CPT/HCPCS: 96360; J1642; J7120

== ENCOUNTER 2022-06-22 00:32 | Day surgery (SDC) | payer OTHER ==
[2022-06-22 09:46] VITALS: BP 96/62
[2022-06-22 10:44] LABS: Bun/Creatinine Ratio 18.1 (12.0-20.0); Calcium, Blood 9.2 mg/dL (8.5-10.1); Creatinine, Blood 0.77 mg/dL (0.40-1.00); Magnesium, Blood 1.9 mg/dL (1.6-2.4); Potassium, Blood 3.9 mmol/L (3.5-5.5)
== END 2022-06-22 11:00 | disposition home or self-care (01) ==
LOC: ATC 00:32
PROVIDERS: Family Medicine
DX: K94.19 Other complications of enterostomy (principal); Z88.5 Allergy status to narcotic agent; Z79.899 Other long term (current) drug therapy
CPT/HCPCS: 80048; 83735; 96360; J1642; J7120

== ENCOUNTER 2022-06-27 02:37 | Day surgery (SDC) | payer OTHER ==
[2022-06-27 10:31] VITALS: BP 95/62
[2022-06-27 11:48] LABS: BASOPHILS ABSOLUTE AUTO 0.04 K/mm3 (0.00-0.23); BASOPHILS PERCENT AUTO 1 % (0-2); EOSINOPHILS ABSOLUTE AUTO 0.13 K/mm3 (0.00-0.68); EOSINOPHILS PERCENT AUTO 2 % (0-6); Hematocrit 38.3 % (33.0-51.0); Hemoglobin 12.8 g/dL (11.5-16.0); IMMATURE GRAN ABSOLUTE AUTO 0.03 K/mm3 (0.00-0.10); IMMATURE GRAN PERCENT AUTO 0 % (0-1); LYMPHOCYTES ABSOLUTE AUTO 2.35 K/mm3 (0.84-5.20); LYMPHOCYTES PERCENT AUTO 29 % (21-46); MONOCYTES ABSOLUTE AUTO 0.31 K/mm3 (0.16-1.47); MONOCYTES PERCENT AUTO 4 % (4-13); Mean Corpuscular HGB 30.6 pg (26.0-34.0); Mean Corpuscular HGB Conc 33.4 g/dL (31.5-36.5); Mean Corpuscular Volume 92 fL (80-100); Mean Platelet Volume 9.4 fL (9.1-12.4); NEUTROPHILS ABSOLUTE AUTO 5.14 K/mm3 (1.96-9.15); NEUTROPHILS PERCENT AUTO 64 % (41-73); Platelet Count 323 K/mm3 (150-400); RDW Coefficient Variation 13.2 % (11.7-14.2); Red Blood Cell Count 4.18 M/mm3 (3.80-5.20)
[2022-06-27 12:06] LABS: Albumin, Blood 3.9 g/dL (3.4-5.0); Albumin/Globulin Ratio 1.2 (0.8-1.8); Bilirubin, Total 0.2 mg/dL (0.1-1.0); Bun/Creatinine Ratio 21.9 (12.0-20.0); Creatinine, Blood 0.73 mg/dL (0.40-1.00); Globulin, Blood 3.3 g/dL (2.2-4.0); Magnesium, Blood 1.9 mg/dL (1.6-2.4); Potassium, Blood 3.9 mmol/L (3.5-5.5); Total Protein, Blood 7.2 g/dL (6.4-8.2)
== END 2022-06-27 11:32 | disposition home or self-care (01) ==
LOC: ATC 02:37
PROVIDERS: Colon & Rectal Surgery
DX: K94.19 Other complications of enterostomy (principal)
CPT/HCPCS: 80053; 83735; 85025; 96360; J1642; J7120

== ENCOUNTER 2022-06-29 03:43 | Day surgery (SDC) | payer OTHER ==
[2022-06-29 11:55] VITALS: BP 104/84
[2022-07-04] MEDS ORDERED: NASACORT10.8 ML INH (09:44)
== END 2022-06-29 12:15 | disposition home or self-care (01) ==
LOC: ATC 03:43
DX: K94.19 Other complications of enterostomy (principal); Z88.5 Allergy status to narcotic agent; Z79.899 Other long term (current) drug therapy
CPT/HCPCS: 96360; J1642; J7120

== ENCOUNTER 2022-07-02 00:41 | Day surgery (SDC) | payer OTHER ==
[2022-07-02 08:05] VITALS: BP 92/69
[2022-07-02 08:47] LABS: BASOPHILS ABSOLUTE AUTO 0.04 K/mm3 (0.00-0.23); BASOPHILS PERCENT AUTO 0 % (0-2); EOSINOPHILS ABSOLUTE AUTO 0.15 K/mm3 (0.00-0.68); EOSINOPHILS PERCENT AUTO 2 % (0-6); Hematocrit 37.7 % (33.0-51.0); Hemoglobin 12.6 g/dL (11.5-16.0); IMMATURE GRAN ABSOLUTE AUTO 0.03 K/mm3 (0.00-0.10); IMMATURE GRAN PERCENT AUTO 0 % (0-1); LYMPHOCYTES ABSOLUTE AUTO 2.57 K/mm3 (0.84-5.20); LYMPHOCYTES PERCENT AUTO 29 % (21-46); MONOCYTES ABSOLUTE AUTO 0.33 K/mm3 (0.16-1.47); MONOCYTES PERCENT AUTO 4 % (4-13); Mean Corpuscular HGB 30.7 pg (26.0-34.0); Mean Corpuscular HGB Conc 33.4 g/dL (31.5-36.5); Mean Corpuscular Volume 92 fL (80-100); Mean Platelet Volume 9.1 fL (9.1-12.4); NEUTROPHILS ABSOLUTE AUTO 5.89 K/mm3 (1.96-9.15); NEUTROPHILS PERCENT AUTO 65 % (41-73); Platelet Count 302 K/mm3 (150-400); RDW Coefficient Variation 13.1 % (11.7-14.2); RDW Standard Deviation 44.3 fL (35.1-46.3); Red Blood Cell Count 4.11 M/mm3 (3.80-5.20); White Blood Cell Count 9.01 K/mm3 (4.00-11.30)
[2022-07-02 09:23] LABS: Albumin, Blood 3.8 g/dL (3.4-5.0); Albumin/Globulin Ratio 1.1 (0.8-1.8); Bilirubin, Total 0.4 mg/dL (0.1-1.0); Bun/Creatinine Ratio 19.8 (12.0-20.0); Calcium, Blood 9.6 mg/dL (8.5-10.1); Creatinine, Blood 0.71 mg/dL (0.40-1.00); Globulin, Blood 3.5 g/dL (2.2-4.0); Potassium, Blood 3.8 mmol/L (3.5-5.5); Total Protein, Blood 7.3 g/dL (6.4-8.2)
[2022-07-02 10:09] LABS: Percent Saturation 26.9 % (15.0-50.0); Thyroid Stimulating Hormone 1.61 uIU/mL (0.360-4.800)
[2022-07-04] MEDS ORDERED: NASACORT10.8 ML INH (09:44)
== END 2022-07-02 09:15 | disposition home or self-care (01) ==
LOC: ATC 00:41
PROVIDERS: Colon & Rectal Surgery; Family Medicine
DX: K94.19 Other complications of enterostomy (principal); Z87.891 Personal history of nicotine dependence; Z88.5 Allergy status to narcotic agent; Z79.899 Other long term (current) drug therapy
CPT/HCPCS: 80053; 82607; 82728; 83540; 83550; 84443; 85025; 96360; J1642; J7120

== ENCOUNTER 2022-07-06 01:44 | Day surgery (SDC) | payer OTHER ==
[~2022-07-06 01:44] MED LIST changes: +NASACORT10.8 ML INH
[2022-07-06 09:43] VITALS: BP 110/66
== END 2022-07-06 10:49 | disposition home or self-care (01) ==
LOC: ATC 01:44
DX: K94.19 Other complications of enterostomy (principal); Z88.5 Allergy status to narcotic agent; Z79.899 Other long term (current) drug therapy
CPT/HCPCS: 96360; J1642; J7120

== ENCOUNTER 2022-07-09 02:01 | Day surgery (SDC) | payer OTHER ==
[2022-07-09 08:00] VITALS: BP 101/61
[2022-07-09 08:37] LABS: BASOPHILS ABSOLUTE AUTO 0.03 K/mm3 (0.00-0.23); BASOPHILS PERCENT AUTO 0 % (0-2); EOSINOPHILS ABSOLUTE AUTO 0.29 K/mm3 (0.00-0.68); EOSINOPHILS PERCENT AUTO 4 % (0-6); Hematocrit 38.3 % (33.0-51.0); Hemoglobin 12.8 g/dL (11.5-16.0); IMMATURE GRAN ABSOLUTE AUTO 0.02 K/mm3 (0.00-0.10); IMMATURE GRAN PERCENT AUTO 0 % (0-1); LYMPHOCYTES ABSOLUTE AUTO 2.98 K/mm3 (0.84-5.20); LYMPHOCYTES PERCENT AUTO 38 % (21-46); MONOCYTES ABSOLUTE AUTO 0.32 K/mm3 (0.16-1.47); MONOCYTES PERCENT AUTO 4 % (4-13); Mean Corpuscular HGB 30.3 pg (26.0-34.0); Mean Corpuscular HGB Conc 33.4 g/dL (31.5-36.5); Mean Corpuscular Volume 91 fL (80-100); NEUTROPHILS ABSOLUTE AUTO 4.17 K/mm3 (1.96-9.15); NEUTROPHILS PERCENT AUTO 53 % (41-73); Platelet Count 320 K/mm3 (150-400); RDW Coefficient Variation 13.1 % (11.7-14.2); RDW Standard Deviation 43.1 fL (35.1-46.3); Red Blood Cell Count 4.22 M/mm3 (3.80-5.20); White Blood Cell Count 7.81 K/mm3 (4.00-11.30)
[2022-07-09 09:14] LABS: Albumin, Blood 3.8 g/dL (3.4-5.0); Albumin/Globulin Ratio 1.2 (0.8-1.8); Bilirubin, Total 0.3 mg/dL (0.1-1.0); Bun/Creatinine Ratio 15.1 (12.0-20.0); Calcium, Blood 8.8 mg/dL (8.5-10.1); Creatinine, Blood 0.73 mg/dL (0.40-1.00); Globulin, Blood 3.3 g/dL (2.2-4.0); Magnesium, Blood 1.5 mg/dL (1.6-2.4); Potassium, Blood 3.6 mmol/L (3.5-5.5); Total Protein, Blood 7.1 g/dL (6.4-8.2)
== END 2022-07-09 09:20 | disposition home or self-care (01) ==
LOC: ATC 02:01
PROVIDERS: Family Medicine
DX: K94.19 Other complications of enterostomy (principal); G90.50 Complex regional pain syndrome I, unspecified; L02.31 Cutaneous abscess of buttock; J30.9 Allergic rhinitis, unspecified
CPT/HCPCS: 80053; 83735; 85025; 96360; J1642; J7120

== ENCOUNTER 2022-07-11 05:38 | Day surgery (SDC) | payer OTHER ==
[2022-07-11 08:09] VITALS: BP 94/60
== END 2022-07-11 09:17 | disposition home or self-care (01) ==
LOC: ATC 05:38
DX: K94.19 Other complications of enterostomy (principal); Z88.8 Allergy status to other drugs, medicaments and biological substances; L02.31 Cutaneous abscess of buttock; J30.9 Allergic rhinitis, unspecified; G90.50 Complex regional pain syndrome I, unspecified
CPT/HCPCS: 96360; J1642; J7120

== ENCOUNTER 2022-07-23 00:54 | Day surgery (SDC) | payer OTHER ==
[2022-07-23 10:10] VITALS: BP 106/70
[2022-07-23 10:46] LABS: BASOPHILS ABSOLUTE AUTO 0.04 K/mm3 (0.00-0.23); BASOPHILS PERCENT AUTO 0 % (0-2); EOSINOPHILS ABSOLUTE AUTO 0.25 K/mm3 (0.00-0.68); EOSINOPHILS PERCENT AUTO 2 % (0-6); Hematocrit 37.2 % (33.0-51.0); Hemoglobin 12.7 g/dL (11.5-16.0); IMMATURE GRAN ABSOLUTE AUTO 0.03 K/mm3 (0.00-0.10); IMMATURE GRAN PERCENT AUTO 0 % (0-1); LYMPHOCYTES ABSOLUTE AUTO 2.51 K/mm3 (0.84-5.20); LYMPHOCYTES PERCENT AUTO 24 % (21-46); MONOCYTES ABSOLUTE AUTO 0.42 K/mm3 (0.16-1.47); MONOCYTES PERCENT AUTO 4 % (4-13); Mean Corpuscular HGB 30.7 pg (26.0-34.0); Mean Corpuscular HGB Conc 34.1 g/dL (31.5-36.5); Mean Corpuscular Volume 90 fL (80-100); Mean Platelet Volume 8.8 fL (9.1-12.4); NEUTROPHILS ABSOLUTE AUTO 7.21 K/mm3 (1.96-9.15); NEUTROPHILS PERCENT AUTO 69 % (41-73); Platelet Count 294 K/mm3 (150-400); RDW Coefficient Variation 13.2 % (11.7-14.2); RDW Standard Deviation 43.9 fL (35.1-46.3); Red Blood Cell Count 4.14 M/mm3 (3.80-5.20); White Blood Cell Count 10.46 K/mm3 (4.00-11.30)
[2022-07-23 11:20] LABS: Albumin, Blood 3.8 g/dL (3.4-5.0); Albumin/Globulin Ratio 1.1 (0.8-1.8); Bilirubin, Total 0.3 mg/dL (0.1-1.0); Bun/Creatinine Ratio 10.4 (12.0-20.0); Calcium, Blood 8.8 mg/dL (8.5-10.1); Creatinine, Blood 0.77 mg/dL (0.40-1.00); Globulin, Blood 3.4 g/dL (2.2-4.0); Magnesium, Blood 1.6 mg/dL (1.6-2.4); Total Protein, Blood 7.2 g/dL (6.4-8.2)
== END 2022-07-23 11:31 | disposition home or self-care (01) ==
LOC: ATC 00:54
PROVIDERS: Family Medicine
DX: K94.19 Other complications of enterostomy (principal)
CPT/HCPCS: 80053; 83735; 85025; 96360; J1642; J7120

== ENCOUNTER 2022-07-27 02:40 | Day surgery (SDC) | payer OTHER ==
[2022-07-27 08:38] VITALS: BP 103/73
== END 2022-07-27 09:45 | disposition home or self-care (01) ==
LOC: ATC 02:40
DX: K94.19 Other complications of enterostomy (principal); Z88.5 Allergy status to narcotic agent
CPT/HCPCS: 96360; J1642; J7120

== ENCOUNTER 2022-08-01 03:29 | Day surgery (SDC) | payer OTHER ==
[2022-08-01 14:18] VITALS: BP 120/74
[2022-08-01 15:05] LABS: Albumin, Blood 3.6 g/dL (3.4-5.0); Albumin/Globulin Ratio 1.2 (0.8-1.8); Bilirubin, Total 0.3 mg/dL (0.1-1.0); Bun/Creatinine Ratio 15.5 (12.0-20.0); Calcium, Blood 9.2 mg/dL (8.5-10.1); Creatinine, Blood 0.71 mg/dL (0.40-1.00); Potassium, Blood 4.3 mmol/L (3.5-5.5); Total Protein, Blood 6.6 g/dL (6.4-8.2)
[2022-08-01 15:10] LABS: Hematocrit 35.7 % (33.0-51.0); Mean Corpuscular HGB 30.5 pg (26.0-34.0); Mean Corpuscular HGB Conc 33.6 g/dL (31.5-36.5); Mean Corpuscular Volume 91 fL (80-100); Platelet Count 287 K/mm3 (150-400); RDW Coefficient Variation 13.2 % (11.7-14.2); RDW Standard Deviation 44.3 fL (35.1-46.3); Red Blood Cell Count 3.93 M/mm3 (3.80-5.20); White Blood Cell Count 8.06 K/mm3 (4.00-11.30)
== END 2022-08-01 15:40 | disposition home or self-care (01) ==
LOC: ATC 03:29
PROVIDERS: Family Medicine
DX: K94.19 Other complications of enterostomy (principal); Z79.890 Hormone replacement therapy; Z88.5 Allergy status to narcotic agent; Z79.899 Other long term (current) drug therapy
CPT/HCPCS: 80053; 83735; 85027; 96360; J1642; J7120

== ENCOUNTER 2022-08-06 03:31 | Day surgery (SDC) | payer OTHER ==
[2022-08-06 09:57] VITALS: BP 116/76
[2022-08-06 12:10] LABS: Hematocrit 37.4 % (33.0-51.0); Hemoglobin 12.6 g/dL (11.5-16.0); Mean Corpuscular HGB 30.5 pg (26.0-34.0); Mean Corpuscular HGB Conc 33.7 g/dL (31.5-36.5); Mean Corpuscular Volume 91 fL (80-100); Mean Platelet Volume 9.5 fL (9.1-12.4); Platelet Count 305 K/mm3 (150-400); RDW Coefficient Variation 13.2 % (11.7-14.2); RDW Standard Deviation 44.2 fL (35.1-46.3); Red Blood Cell Count 4.13 M/mm3 (3.80-5.20); White Blood Cell Count 8.24 K/mm3 (4.00-11.30)
[2022-08-06 13:04] LABS: Magnesium, Blood 2.1 mg/dL (1.6-2.4)
[2022-08-06 13:05] LABS: Albumin, Blood 4.1 g/dL (3.4-5.0); Albumin/Globulin Ratio 1.2 (0.8-1.8); Bilirubin, Total 0.6 mg/dL (0.1-1.0); Bun/Creatinine Ratio 17.3 (12.0-20.0); Calcium, Blood 9.5 mg/dL (8.5-10.1); Creatinine, Blood 0.75 mg/dL (0.40-1.00); Globulin, Blood 3.3 g/dL (2.2-4.0); Potassium, Blood 3.8 mmol/L (3.5-5.5); Total Protein, Blood 7.4 g/dL (6.4-8.2)
== END 2022-08-06 11:04 | disposition home or self-care (01) ==
LOC: ATC 03:31
PROVIDERS: Family Medicine
DX: K94.19 Other complications of enterostomy (principal); L40.9 Psoriasis, unspecified; E53.8 Deficiency of other specified B group vitamins; Z87.891 Personal history of nicotine dependence
CPT/HCPCS: 80053; 83735; 85027; J1642; J7120

== ENCOUNTER 2022-08-08 03:58 | Day surgery (SDC) | payer OTHER ==
--- NOTE | 2022-08-08 11:44 | NUR ---
NO CALL, NO SHOW
[2022-08-08 15:55] VITALS: BP 109/67
== END 2022-08-08 16:59 | disposition home or self-care (01) ==
LOC: ATC 03:58
DX: K94.19 Other complications of enterostomy (principal); Z88.5 Allergy status to narcotic agent
CPT/HCPCS: 96360; J1642; J7120

== ENCOUNTER 2022-08-13 15:52 | Day surgery (SDC) | payer OTHER ==
[2022-08-13 16:27] VITALS: BP 106/66
[2022-08-13 16:49] LABS: BASOPHILS ABSOLUTE AUTO 0.05 K/mm3 (0.00-0.23); BASOPHILS PERCENT AUTO 1 % (0-2); EOSINOPHILS ABSOLUTE AUTO 0.34 K/mm3 (0.00-0.68); EOSINOPHILS PERCENT AUTO 4 % (0-6); Hematocrit 35.9 % (33.0-51.0); IMMATURE GRAN ABSOLUTE AUTO 0.05 K/mm3 (0.00-0.10); IMMATURE GRAN PERCENT AUTO 1 % (0-1); LYMPHOCYTES ABSOLUTE AUTO 3.01 K/mm3 (0.84-5.20); LYMPHOCYTES PERCENT AUTO 35 % (21-46); MONOCYTES ABSOLUTE AUTO 0.33 K/mm3 (0.16-1.47); MONOCYTES PERCENT AUTO 4 % (4-13); Mean Corpuscular HGB 30.4 pg (26.0-34.0); Mean Corpuscular HGB Conc 33.4 g/dL (31.5-36.5); Mean Corpuscular Volume 91 fL (80-100); Mean Platelet Volume 9.1 fL (9.1-12.4); NEUTROPHILS ABSOLUTE AUTO 4.83 K/mm3 (1.96-9.15); NEUTROPHILS PERCENT AUTO 56 % (41-73); Platelet Count 282 K/mm3 (150-400); RDW Coefficient Variation 13.2 % (11.7-14.2); RDW Standard Deviation 43.8 fL (35.1-46.3); Red Blood Cell Count 3.95 M/mm3 (3.80-5.20); White Blood Cell Count 8.61 K/mm3 (4.00-11.30)
[2022-08-13 20:04] LABS: Magnesium, Blood 1.8 mg/dL (1.6-2.4)
[2022-08-13 20:08] LABS: Albumin/Globulin Ratio 1.2 (0.8-1.8); Bilirubin, Total 0.4 mg/dL (0.1-1.0); Bun/Creatinine Ratio 16.6 (12.0-20.0); Calcium, Blood 9.3 mg/dL (8.5-10.1); Creatinine, Blood 0.78 mg/dL (0.40-1.00); Globulin, Blood 3.3 g/dL (2.2-4.0); Potassium, Blood 3.5 mmol/L (3.5-5.5); Total Protein, Blood 7.3 g/dL (6.4-8.2)
== END 2022-08-13 17:30 | disposition home or self-care (01) ==
LOC: ATC 15:52
PROVIDERS: Family Medicine
DX: K94.19 Other complications of enterostomy (principal)
CPT/HCPCS: 36591; 80053; 83735; 85025; 96360; J1642; J7120

== ENCOUNTER 2022-09-07 01:45 | Day surgery (SDC) | payer OTHER ==
[2022-09-07 14:43] VITALS: BP 121/64
== END 2022-09-07 15:47 | disposition home or self-care (01) ==
LOC: ATC 01:45
DX: K94.19 Other complications of enterostomy (principal)
CPT/HCPCS: 96360; J1642; J7120

== ENCOUNTER 2022-09-10 00:59 | Day surgery (SDC) | payer OTHER ==
[2022-09-10 09:05] VITALS: BP 102/69
[2022-09-10 09:35] LABS: BASOPHILS ABSOLUTE AUTO 0.02 K/mm3 (0.00-0.23); BASOPHILS PERCENT AUTO 0 % (0-2); EOSINOPHILS ABSOLUTE AUTO 0.22 K/mm3 (0.00-0.68); EOSINOPHILS PERCENT AUTO 3 % (0-6); Hematocrit 33.2 % (33.0-51.0); Hemoglobin 11.4 g/dL (11.5-16.0); IMMATURE GRAN ABSOLUTE AUTO 0.02 K/mm3 (0.00-0.10); IMMATURE GRAN PERCENT AUTO 0 % (0-1); LYMPHOCYTES ABSOLUTE AUTO 2.16 K/mm3 (0.84-5.20); LYMPHOCYTES PERCENT AUTO 32 % (21-46); MONOCYTES ABSOLUTE AUTO 0.29 K/mm3 (0.16-1.47); MONOCYTES PERCENT AUTO 4 % (4-13); Mean Corpuscular HGB 30.1 pg (26.0-34.0); Mean Corpuscular HGB Conc 34.3 g/dL (31.5-36.5); Mean Corpuscular Volume 88 fL (80-100); Mean Platelet Volume 8.9 fL (9.1-12.4); NEUTROPHILS ABSOLUTE AUTO 4.05 K/mm3 (1.96-9.15); NEUTROPHILS PERCENT AUTO 60 % (41-73); Platelet Count 247 K/mm3 (150-400); RDW Coefficient Variation 13.4 % (11.7-14.2); RDW Standard Deviation 43.3 fL (35.1-46.3); Red Blood Cell Count 3.79 M/mm3 (3.80-5.20); White Blood Cell Count 6.76 K/mm3 (4.00-11.30)
[2022-09-10 11:53] LABS: Albumin, Blood 3.4 g/dL (3.4-5.0); Albumin/Globulin Ratio 1.1 (0.8-1.8); Bilirubin, Total 0.3 mg/dL (0.1-1.0); Bun/Creatinine Ratio 17.4 (12.0-20.0); Calcium, Blood 8.5 mg/dL (8.5-10.1); Creatinine, Blood 0.69 mg/dL (0.40-1.00); Magnesium, Blood 1.6 mg/dL (1.6-2.4); Potassium, Blood 3.8 mmol/L (3.5-5.5); Total Protein, Blood 6.4 g/dL (6.4-8.2)
== END 2022-09-10 10:07 | disposition home or self-care (01) ==
LOC: ATC 00:59
PROVIDERS: Family Medicine
DX: K94.19 Other complications of enterostomy (principal)
CPT/HCPCS: 80053; 83735; 85025; 96360; J1642; J7120

== ENCOUNTER 2022-09-12 01:48 | Day surgery (SDC) | payer OTHER ==
[2022-09-12 10:29] VITALS: BP 115/81
== END 2022-09-12 11:37 | disposition home or self-care (01) ==
LOC: ATC 01:48
DX: K94.19 Other complications of enterostomy (principal)
CPT/HCPCS: 96360; J1642; J7120

== ENCOUNTER 2022-09-14 03:47 | Day surgery (SDC) | payer OTHER ==
[2022-09-14 09:02] VITALS: BP 111/89
== END 2022-09-14 10:11 | disposition home or self-care (01) ==
LOC: ATC 03:47
DX: K94.19 Other complications of enterostomy (principal)
CPT/HCPCS: 96360; J1642; J7120

== ENCOUNTER 2022-09-17 00:10 | Day surgery (SDC) | payer OTHER ==
[2022-09-17 07:37] VITALS: BP 111/66
[2022-09-17 08:34] LABS: BASOPHILS ABSOLUTE AUTO 0.03 K/mm3 (0.00-0.23); BASOPHILS PERCENT AUTO 1 % (0-2); EOSINOPHILS ABSOLUTE AUTO 0.22 K/mm3 (0.00-0.68); EOSINOPHILS PERCENT AUTO 3 % (0-6); Hematocrit 35.2 % (33.0-51.0); Hemoglobin 12.1 g/dL (11.5-16.0); IMMATURE GRAN ABSOLUTE AUTO 0.02 K/mm3 (0.00-0.10); IMMATURE GRAN PERCENT AUTO 0 % (0-1); LYMPHOCYTES ABSOLUTE AUTO 2.51 K/mm3 (0.84-5.20); LYMPHOCYTES PERCENT AUTO 38 % (21-46); MONOCYTES ABSOLUTE AUTO 0.34 K/mm3 (0.16-1.47); MONOCYTES PERCENT AUTO 5 % (4-13); Mean Corpuscular HGB 30.5 pg (26.0-34.0); Mean Corpuscular HGB Conc 34.4 g/dL (31.5-36.5); Mean Corpuscular Volume 89 fL (80-100); Mean Platelet Volume 9.1 fL (9.1-12.4); NEUTROPHILS ABSOLUTE AUTO 3.41 K/mm3 (1.96-9.15); NEUTROPHILS PERCENT AUTO 52 % (41-73); Platelet Count 264 K/mm3 (150-400); RDW Coefficient Variation 13.6 % (11.7-14.2); RDW Standard Deviation 44.7 fL (35.1-46.3); Red Blood Cell Count 3.97 M/mm3 (3.80-5.20); White Blood Cell Count 6.53 K/mm3 (4.00-11.30)
[2022-09-17 09:32] LABS: Magnesium, Blood 1.7 mg/dL (1.6-2.4)
[2022-09-17 09:36] LABS: Albumin, Blood 3.8 g/dL (3.4-5.0); Albumin/Globulin Ratio 1.3 (0.8-1.8); Bilirubin, Total 0.3 mg/dL (0.1-1.0); Bun/Creatinine Ratio 13.8 (12.0-20.0); Creatinine, Blood 0.72 mg/dL (0.40-1.00); Globulin, Blood 2.9 g/dL (2.2-4.0); Total Protein, Blood 6.7 g/dL (6.4-8.2)
== END 2022-09-17 08:53 | disposition home or self-care (01) ==
LOC: ATC 00:10
PROVIDERS: Family Medicine
DX: K94.19 Other complications of enterostomy (principal)
CPT/HCPCS: 80053; 83735; 85025; J1642; J7120

== ENCOUNTER 2022-09-21 07:37 | Day surgery (SDC) | payer OTHER ==
[2022-09-21 07:45] VITALS: BP 106/62
== END 2022-09-21 08:48 | disposition home or self-care (01) ==
LOC: ATC 07:37
DX: K94.19 Other complications of enterostomy (principal); L40.9 Psoriasis, unspecified; G90.50 Complex regional pain syndrome I, unspecified
CPT/HCPCS: 96360; J1642; J7120

== ENCOUNTER 2022-09-27 04:00 | Day surgery (SDC) | payer OTHER ==
[2022-09-27 08:09] VITALS: BP 111/78
== END 2022-09-27 09:13 | disposition home or self-care (01) ==
LOC: ATC 04:00
DX: K94.19 Other complications of enterostomy (principal); Y83.3 Surgical operation with formation of external stoma as the cause of abnormal reaction of the patient, or of later complication, without mention of misadventure at the time of the procedure
CPT/HCPCS: 96360; J1642; J7120

== ENCOUNTER 2022-10-02 02:33 | Day surgery (SDC) | payer OTHER ==
[2022-10-02 10:08] VITALS: BP 107/70
[2022-10-02 10:21] LABS: BASOPHILS ABSOLUTE AUTO 0.04 K/mm3 (0.00-0.23); BASOPHILS PERCENT AUTO 1 % (0-2); EOSINOPHILS ABSOLUTE AUTO 0.24 K/mm3 (0.00-0.68); EOSINOPHILS PERCENT AUTO 3 % (0-6); Hematocrit 37.1 % (33.0-51.0); Hemoglobin 12.9 g/dL (11.5-16.0); IMMATURE GRAN ABSOLUTE AUTO 0.05 K/mm3 (0.00-0.10); IMMATURE GRAN PERCENT AUTO 1 % (0-1); LYMPHOCYTES ABSOLUTE AUTO 2.66 K/mm3 (0.84-5.20); LYMPHOCYTES PERCENT AUTO 33 % (21-46); MONOCYTES ABSOLUTE AUTO 0.49 K/mm3 (0.16-1.47); MONOCYTES PERCENT AUTO 6 % (4-13); Mean Corpuscular HGB 30.3 pg (26.0-34.0); Mean Corpuscular HGB Conc 34.8 g/dL (31.5-36.5); Mean Corpuscular Volume 87 fL (80-100); Mean Platelet Volume 9.2 fL (9.1-12.4); NEUTROPHILS PERCENT AUTO 58 % (41-73); Platelet Count 301 K/mm3 (150-400); RDW Coefficient Variation 13.3 % (11.7-14.2); RDW Standard Deviation 42.1 fL (35.1-46.3); Red Blood Cell Count 4.26 M/mm3 (3.80-5.20); White Blood Cell Count 8.18 K/mm3 (4.00-11.30)
[2022-10-02 11:03] LABS: Albumin/Globulin Ratio 1.1 (0.8-1.8); Bilirubin, Total 0.2 mg/dL (0.1-1.0); Bun/Creatinine Ratio 16.7 (12.0-20.0); Calcium, Blood 9.4 mg/dL (8.5-10.1); Creatinine, Blood 0.66 mg/dL (0.40-1.00); Globulin, Blood 3.6 g/dL (2.2-4.0); Potassium, Blood 4.3 mmol/L (3.5-5.5); Total Protein, Blood 7.6 g/dL (6.4-8.2)
== END 2022-10-02 11:10 | disposition home or self-care (01) ==
LOC: ATC 02:33
PROVIDERS: Family Medicine
DX: K94.19 Other complications of enterostomy (principal); Z88.5 Allergy status to narcotic agent; Z79.890 Hormone replacement therapy; Z79.899 Other long term (current) drug therapy
CPT/HCPCS: 80053; 83735; 85025; 96360; J1642; J7120

== ENCOUNTER 2022-10-05 01:08 | Day surgery (SDC) | payer OTHER ==
[2022-10-05 13:34] VITALS: BP 117/71
== END 2022-10-05 14:41 | disposition home or self-care (01) ==
LOC: ATC 01:08
DX: K94.19 Other complications of enterostomy (principal); E53.8 Deficiency of other specified B group vitamins; L40.9 Psoriasis, unspecified
CPT/HCPCS: 96360; J1642; J7120

== ENCOUNTER 2022-10-09 01:51 | Day surgery (SDC) | payer OTHER ==
[2022-10-09 07:34] VITALS: BP 108/74
[2022-10-09 08:06] LABS: BASOPHILS ABSOLUTE AUTO 0.03 K/mm3 (0.00-0.23); BASOPHILS PERCENT AUTO 0 % (0-2); EOSINOPHILS ABSOLUTE AUTO 0.12 K/mm3 (0.00-0.68); EOSINOPHILS PERCENT AUTO 2 % (0-6); Hematocrit 34.3 % (33.0-51.0); IMMATURE GRAN ABSOLUTE AUTO 0.03 K/mm3 (0.00-0.10); IMMATURE GRAN PERCENT AUTO 0 % (0-1); LYMPHOCYTES ABSOLUTE AUTO 2.29 K/mm3 (0.84-5.20); LYMPHOCYTES PERCENT AUTO 30 % (21-46); MONOCYTES ABSOLUTE AUTO 0.34 K/mm3 (0.16-1.47); MONOCYTES PERCENT AUTO 5 % (4-13); Mean Corpuscular HGB 30.5 pg (26.0-34.0); Mean Corpuscular Volume 87 fL (80-100); NEUTROPHILS ABSOLUTE AUTO 4.77 K/mm3 (1.96-9.15); NEUTROPHILS PERCENT AUTO 63 % (41-73); Platelet Count 253 K/mm3 (150-400); RDW Coefficient Variation 13.7 % (11.7-14.2); RDW Standard Deviation 43.4 fL (35.1-46.3); Red Blood Cell Count 3.94 M/mm3 (3.80-5.20); White Blood Cell Count 7.58 K/mm3 (4.00-11.30)
[2022-10-09 08:32] LABS: Magnesium, Blood 1.7 mg/dL (1.6-2.4)
[2022-10-09 08:33] LABS: Albumin, Blood 3.7 g/dL (3.4-5.0); Albumin/Globulin Ratio 1.1 (0.8-1.8); Bilirubin, Total 0.6 mg/dL (0.1-1.0); Bun/Creatinine Ratio 15.4 (12.0-20.0); Calcium, Blood 8.9 mg/dL (8.5-10.1); Creatinine, Blood 0.71 mg/dL (0.40-1.00); Globulin, Blood 3.3 g/dL (2.2-4.0); Potassium, Blood 3.7 mmol/L (3.5-5.5)
== END 2022-10-09 08:45 | disposition home or self-care (01) ==
LOC: ATC 01:51
PROVIDERS: Family Medicine
DX: K94.19 Other complications of enterostomy (principal); E53.8 Deficiency of other specified B group vitamins; L40.9 Psoriasis, unspecified
CPT/HCPCS: 80053; 83735; 85025; 96360; J1642; J7120

== ENCOUNTER 2022-10-12 01:03 | Day surgery (SDC) | payer OTHER ==
[2022-10-12 07:44] VITALS: BP 84/68
== END 2022-10-12 08:49 | disposition home or self-care (01) ==
LOC: ATC 01:03
DX: K94.19 Other complications of enterostomy (principal); L40.9 Psoriasis, unspecified; E53.8 Deficiency of other specified B group vitamins; G90.50 Complex regional pain syndrome I, unspecified
CPT/HCPCS: 96360; J1642; J7120

== ENCOUNTER 2022-10-16 01:34 | Day surgery (SDC) | payer OTHER ==
[2022-10-16 08:25] VITALS: BP 112/58
[2022-10-16 08:31] LABS: BASOPHILS ABSOLUTE AUTO 0.02 K/mm3 (0.00-0.23); BASOPHILS PERCENT AUTO 0 % (0-2); EOSINOPHILS ABSOLUTE AUTO 0.24 K/mm3 (0.00-0.68); EOSINOPHILS PERCENT AUTO 4 % (0-6); Hematocrit 34.2 % (33.0-51.0); Hemoglobin 11.7 g/dL (11.5-16.0); IMMATURE GRAN ABSOLUTE AUTO 0.02 K/mm3 (0.00-0.10); IMMATURE GRAN PERCENT AUTO 0 % (0-1); LYMPHOCYTES ABSOLUTE AUTO 2.46 K/mm3 (0.84-5.20); LYMPHOCYTES PERCENT AUTO 40 % (21-46); MONOCYTES ABSOLUTE AUTO 0.34 K/mm3 (0.16-1.47); MONOCYTES PERCENT AUTO 6 % (4-13); Mean Corpuscular HGB 30.4 pg (26.0-34.0); Mean Corpuscular HGB Conc 34.2 g/dL (31.5-36.5); Mean Corpuscular Volume 89 fL (80-100); Mean Platelet Volume 8.7 fL (9.1-12.4); NEUTROPHILS ABSOLUTE AUTO 3.07 K/mm3 (1.96-9.15); NEUTROPHILS PERCENT AUTO 50 % (41-73); Platelet Count 273 K/mm3 (150-400); RDW Standard Deviation 45.3 fL (35.1-46.3); Red Blood Cell Count 3.85 M/mm3 (3.80-5.20); White Blood Cell Count 6.15 K/mm3 (4.00-11.30)
[2022-10-16 08:51] LABS: Albumin, Blood 3.6 g/dL (3.4-5.0); Albumin/Globulin Ratio 1.1 (0.8-1.8); Bilirubin, Total 0.5 mg/dL (0.1-1.0); Bun/Creatinine Ratio 13.2 (12.0-20.0); Calcium, Blood 8.8 mg/dL (8.5-10.1); Creatinine, Blood 0.76 mg/dL (0.40-1.00); Globulin, Blood 3.2 g/dL (2.2-4.0); Magnesium, Blood 1.9 mg/dL (1.6-2.4); Potassium, Blood 3.8 mmol/L (3.5-5.5); Total Protein, Blood 6.8 g/dL (6.4-8.2)
== END 2022-10-16 09:50 | disposition home or self-care (01) ==
LOC: ATC 01:34
PROVIDERS: Family Medicine
DX: K94.19 Other complications of enterostomy (principal); E53.8 Deficiency of other specified B group vitamins; L40.9 Psoriasis, unspecified; G90.50 Complex regional pain syndrome I, unspecified
CPT/HCPCS: 80053; 83735; 85025; 96360; J1642; J7120

== ENCOUNTER 2022-10-18 03:46 | Day surgery (SDC) | payer OTHER ==
[2022-10-18 07:53] VITALS: BP 105/75
== END 2022-10-18 09:09 | disposition home or self-care (01) ==
LOC: ATC 03:46
DX: K94.19 Other complications of enterostomy (principal); Z88.5 Allergy status to narcotic agent; Z79.899 Other long term (current) drug therapy
CPT/HCPCS: 96360; J1642; J7120

== ENCOUNTER 2022-10-23 02:11 | Day surgery (SDC) | payer OTHER ==
[2022-10-23 07:56] VITALS: BP 103/75
[2022-10-23 08:12] LABS: BASOPHILS ABSOLUTE AUTO 0.03 K/mm3 (0.00-0.23); BASOPHILS PERCENT AUTO 0 % (0-2); EOSINOPHILS ABSOLUTE AUTO 0.21 K/mm3 (0.00-0.68); EOSINOPHILS PERCENT AUTO 3 % (0-6); Hematocrit 39.6 % (33.0-51.0); Hemoglobin 13.8 g/dL (11.5-16.0); IMMATURE GRAN ABSOLUTE AUTO 0.04 K/mm3 (0.00-0.10); IMMATURE GRAN PERCENT AUTO 1 % (0-1); LYMPHOCYTES ABSOLUTE AUTO 2.57 K/mm3 (0.84-5.20); LYMPHOCYTES PERCENT AUTO 34 % (21-46); MONOCYTES ABSOLUTE AUTO 0.45 K/mm3 (0.16-1.47); MONOCYTES PERCENT AUTO 6 % (4-13); Mean Corpuscular HGB 30.5 pg (26.0-34.0); Mean Corpuscular HGB Conc 34.8 g/dL (31.5-36.5); Mean Corpuscular Volume 87 fL (80-100); Mean Platelet Volume 8.7 fL (9.1-12.4); NEUTROPHILS ABSOLUTE AUTO 4.35 K/mm3 (1.96-9.15); NEUTROPHILS PERCENT AUTO 57 % (41-73); Platelet Count 316 K/mm3 (150-400); RDW Coefficient Variation 13.9 % (11.7-14.2); RDW Standard Deviation 44.3 fL (35.1-46.3); Red Blood Cell Count 4.53 M/mm3 (3.80-5.20); White Blood Cell Count 7.65 K/mm3 (4.00-11.30)
[2022-10-23 08:50] LABS: Albumin, Blood 4.4 g/dL (3.4-5.0); Albumin/Globulin Ratio 1.1 (0.8-1.8); Bilirubin, Total 0.8 mg/dL (0.1-1.0); Bun/Creatinine Ratio 17.5 (12.0-20.0); Creatinine, Blood 0.92 mg/dL (0.40-1.00); Potassium, Blood 4.2 mmol/L (3.5-5.5); Total Protein, Blood 8.4 g/dL (6.4-8.2)
== END 2022-10-23 09:11 | disposition home or self-care (01) ==
LOC: ATC 02:11
PROVIDERS: Family Medicine
DX: K94.19 Other complications of enterostomy (principal); L40.9 Psoriasis, unspecified; E61.2 Magnesium deficiency
CPT/HCPCS: 80053; 83735; 85025; 96360; J1642; J7120

== ENCOUNTER 2022-10-26 00:18 | Day surgery (SDC) | payer OTHER ==
[2022-10-26 08:52] VITALS: BP 112/87
== END 2022-10-26 09:55 | disposition home or self-care (01) ==
LOC: ATC 00:18
DX: K94.19 Other complications of enterostomy (principal); L40.9 Psoriasis, unspecified
CPT/HCPCS: 96360; J1642; J7120

== ENCOUNTER 2022-10-30 01:02 | Day surgery (SDC) | payer OTHER ==
[2022-10-30 08:45] VITALS: BP 113/78
== END 2022-10-30 09:49 | disposition home or self-care (01) ==
LOC: ATC 01:02
DX: K94.19 Other complications of enterostomy (principal); G90.50 Complex regional pain syndrome I, unspecified; L40.9 Psoriasis, unspecified; E61.2 Magnesium deficiency
CPT/HCPCS: J1642; J7120

== ENCOUNTER 2022-11-06 08:16 | Day surgery (SDC) | payer OTHER ==
[2022-11-06 08:25] VITALS: BP 104/69
[2022-11-06 08:48] LABS: BASOPHILS ABSOLUTE AUTO 0.03 K/mm3 (0.00-0.23); BASOPHILS PERCENT AUTO 0 % (0-2); EOSINOPHILS ABSOLUTE AUTO 0.13 K/mm3 (0.00-0.68); EOSINOPHILS PERCENT AUTO 2 % (0-6); Hematocrit 37.7 % (33.0-51.0); Hemoglobin 12.9 g/dL (11.5-16.0); IMMATURE GRAN ABSOLUTE AUTO 0.02 K/mm3 (0.00-0.10); IMMATURE GRAN PERCENT AUTO 0 % (0-1); LYMPHOCYTES ABSOLUTE AUTO 2.71 K/mm3 (0.84-5.20); LYMPHOCYTES PERCENT AUTO 36 % (21-46); MONOCYTES ABSOLUTE AUTO 0.33 K/mm3 (0.16-1.47); MONOCYTES PERCENT AUTO 4 % (4-13); Mean Corpuscular HGB 30.3 pg (26.0-34.0); Mean Corpuscular HGB Conc 34.2 g/dL (31.5-36.5); Mean Corpuscular Volume 89 fL (80-100); Mean Platelet Volume 9.2 fL (9.1-12.4); NEUTROPHILS ABSOLUTE AUTO 4.26 K/mm3 (1.96-9.15); NEUTROPHILS PERCENT AUTO 57 % (41-73); Platelet Count 305 K/mm3 (150-400); RDW Coefficient Variation 13.6 % (11.7-14.2); RDW Standard Deviation 44.5 fL (35.1-46.3); Red Blood Cell Count 4.26 M/mm3 (3.80-5.20); White Blood Cell Count 7.48 K/mm3 (4.00-11.30)
[2022-11-06 09:10] LABS: Albumin, Blood 3.9 g/dL (3.4-5.0); Albumin/Globulin Ratio 1.1 (0.8-1.8); Bilirubin, Total 0.5 mg/dL (0.1-1.0); Bun/Creatinine Ratio 19.2 (12.0-20.0); Calcium, Blood 9.2 mg/dL (8.5-10.1); Creatinine, Blood 0.88 mg/dL (0.40-1.00); Globulin, Blood 3.6 g/dL (2.2-4.0); Magnesium, Blood 1.9 mg/dL (1.6-2.4); Potassium, Blood 4.2 mmol/L (3.5-5.5); Total Protein, Blood 7.5 g/dL (6.4-8.2)
== END 2022-11-06 09:45 | disposition home or self-care (01) ==
LOC: ATC 08:16
PROVIDERS: Family Medicine
DX: K94.19 Other complications of enterostomy (principal); G90.50 Complex regional pain syndrome I, unspecified; E53.8 Deficiency of other specified B group vitamins; L40.9 Psoriasis, unspecified
CPT/HCPCS: 80053; 83735; 85025; 96360; J1642; J7120

== ENCOUNTER 2022-11-09 01:51 | Day surgery (SDC) | payer OTHER ==
[2022-11-09 09:39] VITALS: BP 113/73
== END 2022-11-09 10:48 | disposition home or self-care (01) ==
LOC: ATC 01:51
DX: K94.19 Other complications of enterostomy (principal); Z88.5 Allergy status to narcotic agent; Z79.890 Hormone replacement therapy; Z79.899 Other long term (current) drug therapy
CPT/HCPCS: 96360; J1642; J7120

== ENCOUNTER 2022-11-12 00:56 | Day surgery (SDC) | payer OTHER ==
[2022-11-12 10:32] VITALS: BP 129/84
[2022-11-12 11:38] LABS: Bun/Creatinine Ratio 13.6 (12.0-20.0); Calcium, Blood 9.4 mg/dL (8.5-10.1); Creatinine, Blood 0.74 mg/dL (0.40-1.00); Potassium, Blood 3.8 mmol/L (3.5-5.5)
== END 2022-11-12 11:48 | disposition home or self-care (01) ==
LOC: ATC 00:56
PROVIDERS: Family Medicine
DX: K94.19 Other complications of enterostomy (principal); Z88.5 Allergy status to narcotic agent; Z88.8 Allergy status to other drugs, medicaments and biological substances; Z79.890 Hormone replacement therapy; Z79.899 Other long term (current) drug therapy
CPT/HCPCS: 80048; 83735; 96360; J1642; J7120

== ENCOUNTER 2022-11-15 02:19 | Day surgery (SDC) | payer OTHER ==
[2022-11-15 09:30] VITALS: BP 111/84
== END 2022-11-15 10:35 | disposition home or self-care (01) ==
LOC: ATC 02:19
DX: K94.19 Other complications of enterostomy (principal); Z88.5 Allergy status to narcotic agent; Z79.899 Other long term (current) drug therapy
CPT/HCPCS: 96360; J1642; J7120

== ENCOUNTER → 2022-11-16 | Outpatient (CLI) | payer OTHER | LOC: LAB 16:12 → LAB SHORT 16:12 | DX: R31.9 Hematuria, unspecified (principal) | CPT/HCPCS: 87086 ==

== ENCOUNTER 2022-11-22 02:22 | Day surgery (SDC) | payer OTHER ==
[2022-11-22 08:47] VITALS: BP 119/72
[2022-11-22 09:32] LABS: RETIC HGB EQUIVALENT 32.6 pg (28.20-36.60); RETICULOCYTE ABSOLUTE 0.0656 M/mm3 (0.0200-0.1100); RETICULOCYTE COUNT PERCENT 1.87 % (0.50-2.50)
[2022-11-22 10:34] LABS: Percent Saturation 27.6 % (15.0-50.0)
== END 2022-11-22 10:01 | disposition home or self-care (01) ==
LOC: ATC 02:22
PROVIDERS: Student in an Organized Health Care Education/Training Program
DX: K94.19 Other complications of enterostomy (principal); G90.50 Complex regional pain syndrome I, unspecified; Z79.899 Other long term (current) drug therapy
CPT/HCPCS: 82607; 82728; 82746; 83540; 83550; 85045; 96360; J1642; J7120

== ENCOUNTER 2022-11-30 04:43 | Day surgery (SDC) | payer OTHER ==
[2022-11-30 10:11] VITALS: BP 111/72
[2022-12-04] MEDS ORDERED: Cipro500 MG PO (11:22)
[2022-12-04] MEDS ORDERED: LOPERAMIDE212 PO (18:54)
[2022-12-04] MEDS ORDERED: EUTHYROX75 MC1 PO (18:54)
[2022-12-04] MEDS ORDERED: CIPR500 PO (18:55)
[2022-12-04] MEDS ORDERED: ASCORBIC ACID500 MG (18:56)
== END 2022-11-30 10:46 | disposition home or self-care (01) ==
LOC: ATC 04:43
DX: K94.19 Other complications of enterostomy (principal); L40.9 Psoriasis, unspecified; Z88.5 Allergy status to narcotic agent; Z88.8 Allergy status to other drugs, medicaments and biological substances
CPT/HCPCS: 96360; J1642; J7120

== ENCOUNTER → 2022-12-03 | Outpatient (CLI) | payer OTHER ==
[~2022-12-03] MED LIST changes: +ASCORBIC ACID500 MG; +CIPR500 PO; +Cipro500 MG PO; +EUTHYROX75 MC1 PO; +LOPERAMIDE212 PO
[2022-12-03 10:44] LABS: Source, Urine Clean Catch
[2022-12-03 11:53] LABS: Bilirubin, Urine Neg (Neg); Glucose Qualitative, Urine Neg (Neg); Ketones, Urine Neg (Neg); Leukocyte Esterase, Urine 3+ (Neg); Nitrite, Urine Neg (Neg); Protein, Urine 2+ (Neg); Specific Gravity, Urine 1.025 (1.003-1.022); Urobilinogen, Urine NORM (Normal)
[2022-12-03 11:58] LABS: Blood, Urine 2+ (Neg)
[2022-12-03 12:12] LABS: Appearance, Urine Hazy (Clear); Color, Urine Yellow (P-Yellow); Mucus Light (0-Heavy)
[2022-12-03 12:13] LABS: Bacteria Few /hpf; Calcium Oxalate Crystals Rare /hpf; Squamous Epithelial Cells Rare /hpf (Few)
== END ==
LOC: LAB 10:42 → LAB SHORT 10:42
PROVIDERS: Family Medicine
DX: R30.0 Dysuria (principal)
CPT/HCPCS: 81001; 87086

== ENCOUNTER 2022-12-06 07:45 | Day surgery (SDC) | payer OTHER ==
[2022-12-06 09:04] VITALS: BP 105/68
== END 2022-12-06 10:40 | disposition home or self-care (01) ==
LOC: ATC 07:45
DX: K94.19 Other complications of enterostomy (principal); N39.0 Urinary tract infection, site not specified; Z88.5 Allergy status to narcotic agent; Z88.1 Allergy status to other antibiotic agents; Z79.899 Other long term (current) drug therapy
CPT/HCPCS: 96361; 96365; J1335; J1642; J7120

== ENCOUNTER 2022-12-07 00:27 | Day surgery (SDC) | payer OTHER ==
[2022-12-07 08:01] VITALS: BP 126/79
== END 2022-12-07 08:23 | disposition home or self-care (01) ==
LOC: ATC 00:27
DX: N39.0 Urinary tract infection, site not specified (principal); G90.50 Complex regional pain syndrome I, unspecified; E53.8 Deficiency of other specified B group vitamins; L40.9 Psoriasis, unspecified
CPT/HCPCS: 96365; J1335; J1642

== ENCOUNTER 2022-12-11 02:23 | Day surgery (SDC) | payer OTHER ==
[2022-12-11 14:04] VITALS: BP 107/74
[2022-12-11 14:50] LABS: BASOPHILS ABSOLUTE AUTO 0.04 K/mm3 (0.00-0.23); BASOPHILS PERCENT AUTO 1 % (0-2); EOSINOPHILS PERCENT AUTO 3 % (0-6); Hematocrit 36.5 % (33.0-51.0); Hemoglobin 12.7 g/dL (11.5-16.0); IMMATURE GRAN ABSOLUTE AUTO 0.04 K/mm3 (0.00-0.10); IMMATURE GRAN PERCENT AUTO 1 % (0-1); LYMPHOCYTES ABSOLUTE AUTO 2.61 K/mm3 (0.84-5.20); LYMPHOCYTES PERCENT AUTO 32 % (21-46); MONOCYTES ABSOLUTE AUTO 0.38 K/mm3 (0.16-1.47); MONOCYTES PERCENT AUTO 5 % (4-13); Mean Corpuscular HGB 30.8 pg (26.0-34.0); Mean Corpuscular HGB Conc 34.8 g/dL (31.5-36.5); Mean Corpuscular Volume 89 fL (80-100); Mean Platelet Volume 9.4 fL (9.1-12.4); NEUTROPHILS ABSOLUTE AUTO 4.85 K/mm3 (1.96-9.15); NEUTROPHILS PERCENT AUTO 60 % (41-73); Platelet Count 286 K/mm3 (150-400); RDW Coefficient Variation 13.6 % (11.7-14.2); RDW Standard Deviation 44.5 fL (35.1-46.3); Red Blood Cell Count 4.12 M/mm3 (3.80-5.20); White Blood Cell Count 8.12 K/mm3 (4.00-11.30)
[2022-12-11 15:11] LABS: Albumin, Blood 3.9 g/dL (3.4-5.0); Albumin/Globulin Ratio 1.1 (0.8-1.8); Bilirubin, Total 0.3 mg/dL (0.1-1.0); Bun/Creatinine Ratio 16.2 (12.0-20.0); Calcium, Blood 9.2 mg/dL (8.5-10.1); Creatinine, Blood 0.74 mg/dL (0.40-1.00); Globulin, Blood 3.7 g/dL (2.2-4.0); Potassium, Blood 3.6 mmol/L (3.5-5.5); Total Protein, Blood 7.6 g/dL (6.4-8.2)
== END 2022-12-11 15:30 | disposition home or self-care (01) ==
LOC: ATC 02:23
PROVIDERS: Family Medicine
DX: N39.0 Urinary tract infection, site not specified (principal); L40.9 Psoriasis, unspecified
CPT/HCPCS: 80053; 83735; 85025; 96365; J1335; J1642; J7120

== ENCOUNTER 2022-12-13 01:38 | Day surgery (SDC) | payer OTHER ==
[2022-12-13 08:55] VITALS: BP 109/74
== END 2022-12-13 09:51 | disposition home or self-care (01) ==
LOC: ATC 01:38
DX: N39.0 Urinary tract infection, site not specified (principal)
CPT/HCPCS: 96360; J1642; J7120

== ENCOUNTER 2022-12-18 01:41 | Day surgery (SDC) | payer OTHER ==
[2022-12-18 09:54] VITALS: BP 118/69
[2022-12-18 10:14] LABS: Source, Urine Clean Catch
[2022-12-18 10:17] LABS: Appearance, Urine Clear (Clear); Bilirubin, Urine Neg (Neg); Blood, Urine 2+ (Neg); Color, Urine Yellow (P-Yellow); Glucose Qualitative, Urine Neg (Neg); Ketones, Urine Neg (Neg); Leukocyte Esterase, Urine 3+ (Neg); Nitrite, Urine Neg (Neg); Protein, Urine Neg (Neg); Specific Gravity, Urine 1.015 (1.003-1.022); Urobilinogen, Urine NORM (Normal)
[2022-12-18 10:20] LABS: BASOPHILS ABSOLUTE AUTO 0.03 K/mm3 (0.00-0.23); BASOPHILS PERCENT AUTO 0 % (0-2); EOSINOPHILS ABSOLUTE AUTO 0.17 K/mm3 (0.00-0.68); EOSINOPHILS PERCENT AUTO 3 % (0-6); Hematocrit 35.6 % (33.0-51.0); Hemoglobin 12.1 g/dL (11.5-16.0); IMMATURE GRAN ABSOLUTE AUTO 0.02 K/mm3 (0.00-0.10); IMMATURE GRAN PERCENT AUTO 0 % (0-1); LYMPHOCYTES ABSOLUTE AUTO 2.43 K/mm3 (0.84-5.20); LYMPHOCYTES PERCENT AUTO 36 % (21-46); MONOCYTES ABSOLUTE AUTO 0.31 K/mm3 (0.16-1.47); MONOCYTES PERCENT AUTO 5 % (4-13); Mean Corpuscular HGB 30.6 pg (26.0-34.0); Mean Corpuscular Volume 90 fL (80-100); NEUTROPHILS PERCENT AUTO 56 % (41-73); Platelet Count 285 K/mm3 (150-400); RDW Coefficient Variation 14.1 % (11.7-14.2); RDW Standard Deviation 46.4 fL (35.1-46.3); Red Blood Cell Count 3.95 M/mm3 (3.80-5.20); White Blood Cell Count 6.76 K/mm3 (4.00-11.30)
[2022-12-18 10:23] LABS: Mucus Light (0-Heavy)
[2022-12-18 10:24] LABS: Bacteria Few /hpf; Squamous Epithelial Cells Few /hpf (Few)
[2022-12-18 10:44] LABS: Magnesium, Blood 1.9 mg/dL (1.6-2.4); Percent Saturation 28.2 % (15.0-50.0); Thyroid Stimulating Hormone 7.71 uIU/mL (0.360-4.800)
[2022-12-18 10:58] LABS: Albumin, Blood 3.7 g/dL (3.4-5.0); Bilirubin, Total 0.4 mg/dL (0.1-1.0); Bun/Creatinine Ratio 12.7 (12.0-20.0); Calcium, Blood 9.1 mg/dL (8.5-10.1); Creatinine, Blood 0.79 mg/dL (0.40-1.00); Globulin, Blood 3.6 g/dL (2.2-4.0); Potassium, Blood 4.1 mmol/L (3.5-5.5); Total Protein, Blood 7.3 g/dL (6.4-8.2)
[2022-12-29 12:08] LABS: 25-HYDROXY, VITAMIN D 32 ng/mL (.); 25-HYDROXY, VITAMIN D-2 <1.0 ng/mL (.); 25-HYDROXY, VITAMIN D-3 32 ng/mL (.)
== END 2022-12-18 10:53 | disposition home or self-care (01) ==
LOC: ATC 01:41
PROVIDERS: Colon & Rectal Surgery; Family Medicine
DX: K94.19 Other complications of enterostomy (principal); E55.9 Vitamin D deficiency, unspecified; E61.1 Iron deficiency; N10 Acute pyelonephritis; G90.50 Complex regional pain syndrome I, unspecified; E53.8 Deficiency of other specified B group vitamins; L40.9 Psoriasis, unspecified
CPT/HCPCS: 80053; 81001; 82728; 83540; 83550; 83735; 84443; 85025; 87086; 96360; J1642; J7120

== ENCOUNTER 2022-12-20 03:20 | Day surgery (SDC) | payer OTHER ==
[2022-12-20 09:35] VITALS: BP 120/68
== END 2022-12-20 10:33 | disposition home or self-care (01) ==
LOC: ATC 03:20
DX: K94.19 Other complications of enterostomy (principal); G90.50 Complex regional pain syndrome I, unspecified; E53.8 Deficiency of other specified B group vitamins; L40.9 Psoriasis, unspecified
CPT/HCPCS: 96360; J1642; J7120

== ENCOUNTER 2022-12-25 00:22 | Day surgery (SDC) | payer OTHER ==
[2022-12-25 09:23] VITALS: BP 109/61
[2022-12-25 10:41] LABS: Bun/Creatinine Ratio 19.5 (12.0-20.0); Calcium, Blood 9.3 mg/dL (8.5-10.1); Creatinine, Blood 0.72 mg/dL (0.40-1.00); Magnesium, Blood 1.6 mg/dL (1.6-2.4); Potassium, Blood 3.9 mmol/L (3.5-5.5)
== END 2022-12-25 10:23 | disposition home or self-care (01) ==
LOC: ATC 00:22
PROVIDERS: Family Medicine
DX: K94.19 Other complications of enterostomy (principal); G90.50 Complex regional pain syndrome I, unspecified; L40.9 Psoriasis, unspecified
CPT/HCPCS: 80048; 83735; J1642; J7120

== ENCOUNTER 2023-01-01 01:26 | Day surgery (SDC) | payer OTHER ==
--- NOTE | 2022-12-27 11:37 | NUR ---
PT DID NOT SHOW FOR HER APPOINTMENT IN THE [facility] THIS MORNING.
[2023-01-01 09:23] VITALS: BP 125/78
[2023-01-01 10:35] LABS: Bun/Creatinine Ratio 23.2 (12.0-20.0); Calcium, Blood 9.5 mg/dL (8.5-10.1); Creatinine, Blood 0.82 mg/dL (0.40-1.00); Magnesium, Blood 2.2 mg/dL (1.6-2.4); Potassium, Blood 3.8 mmol/L (3.5-5.5)
== END 2023-01-01 10:30 | disposition home or self-care (01) ==
LOC: ATC 01:26
PROVIDERS: Family Medicine
DX: K94.19 Other complications of enterostomy (principal); G90.50 Complex regional pain syndrome I, unspecified; E53.8 Deficiency of other specified B group vitamins; L40.9 Psoriasis, unspecified; E61.2 Magnesium deficiency
CPT/HCPCS: 80048; 83735; 96360; J1642; J7120

== ENCOUNTER 2023-01-03 05:08 | Day surgery (SDC) | payer OTHER ==
[2023-01-03 14:52] VITALS: BP 97/65
== END 2023-01-03 15:55 | disposition home or self-care (01) ==
LOC: ATC 05:08
DX: E61.2 Magnesium deficiency (principal); Z88.5 Allergy status to narcotic agent; Z79.899 Other long term (current) drug therapy
CPT/HCPCS: 96360; J1642; J7120

== ENCOUNTER 2023-01-08 05:48 | Day surgery (SDC) | payer OTHER ==
[2023-01-08 09:10] VITALS: BP 108/71
[2023-01-08 10:24] LABS: Bun/Creatinine Ratio 19.5 (12.0-20.0); Calcium, Blood 9.6 mg/dL (8.5-10.1); Creatinine, Blood 0.87 mg/dL (0.40-1.00)
== END 2023-01-08 10:22 | disposition home or self-care (01) ==
LOC: ATC 05:48
PROVIDERS: Family Medicine
DX: K94.19 Other complications of enterostomy (principal); G90.50 Complex regional pain syndrome I, unspecified; E53.8 Deficiency of other specified B group vitamins
CPT/HCPCS: 80048; 83735; 96360; J1642; J7120

== ENCOUNTER 2023-01-15 02:20 | Day surgery (SDC) | payer OTHER ==
[2023-01-15 10:30] VITALS: BP 119/97
[2023-01-15 12:25] LABS: BASOPHILS ABSOLUTE AUTO 0.02 K/mm3 (0.00-0.23); BASOPHILS PERCENT AUTO 0 % (0-2); EOSINOPHILS ABSOLUTE AUTO 0.13 K/mm3 (0.00-0.68); EOSINOPHILS PERCENT AUTO 2 % (0-6); Hematocrit 30.9 % (33.0-51.0); Hemoglobin 10.6 g/dL (11.5-16.0); IMMATURE GRAN ABSOLUTE AUTO 0.04 K/mm3 (0.00-0.10); IMMATURE GRAN PERCENT AUTO 1 % (0-1); LYMPHOCYTES PERCENT AUTO 32 % (21-46); MONOCYTES ABSOLUTE AUTO 0.27 K/mm3 (0.16-1.47); MONOCYTES PERCENT AUTO 5 % (4-13); Mean Corpuscular HGB 30.9 pg (26.0-34.0); Mean Corpuscular HGB Conc 34.3 g/dL (31.5-36.5); Mean Corpuscular Volume 90 fL (80-100); Mean Platelet Volume 9.2 fL (9.1-12.4); NEUTROPHILS ABSOLUTE AUTO 3.61 K/mm3 (1.96-9.15); NEUTROPHILS PERCENT AUTO 61 % (41-73); Platelet Count 229 K/mm3 (150-400); RDW Standard Deviation 46.2 fL (35.1-46.3); Red Blood Cell Count 3.43 M/mm3 (3.80-5.20); White Blood Cell Count 5.97 K/mm3 (4.00-11.30)
[2023-01-15 13:02] LABS: Albumin, Blood 3.1 g/dL (3.4-5.0); Bilirubin, Total 0.2 mg/dL (0.1-1.0); Bun/Creatinine Ratio 13.1 (12.0-20.0); Calcium, Blood 8.4 mg/dL (8.5-10.1); Creatinine, Blood 0.76 mg/dL (0.40-1.00); Globulin, Blood 3.1 g/dL (2.2-4.0); Total Protein, Blood 6.2 g/dL (6.4-8.2)
== END 2023-01-15 11:34 | disposition home or self-care (01) ==
LOC: ATC 02:20
PROVIDERS: Family Medicine
DX: K94.19 Other complications of enterostomy (principal); G90.50 Complex regional pain syndrome I, unspecified; E53.8 Deficiency of other specified B group vitamins; L40.9 Psoriasis, unspecified
CPT/HCPCS: 80053; 83735; 85025; 96360; J1642; J7120

== ENCOUNTER 2023-01-22 02:56 | Day surgery (SDC) | payer OTHER ==
[2023-01-22 10:30] VITALS: BP 106/77
[2023-01-22 12:05] LABS: Bun/Creatinine Ratio 10.5 (12.0-20.0); Calcium, Blood 9.3 mg/dL (8.5-10.1); Creatinine, Blood 0.86 mg/dL (0.40-1.00); Potassium, Blood 3.8 mmol/L (3.5-5.5)
== END 2023-01-22 11:37 | disposition home or self-care (01) ==
LOC: ATC 02:56
PROVIDERS: Family Medicine
DX: E86.0 Dehydration (principal); D50.9 Iron deficiency anemia, unspecified; K21.9 Gastro-esophageal reflux disease without esophagitis; E89.0 Postprocedural hypothyroidism; Z87.891 Personal history of nicotine dependence
CPT/HCPCS: 80048; 96360; J1642; J7120

== ENCOUNTER 2023-02-06 01:59 | Day surgery (SDC) | payer OTHER ==
[2023-02-06 07:55] VITALS: BP 110/78
[2023-02-06 09:07] LABS: Bun/Creatinine Ratio 22.4 (12.0-20.0); Creatinine, Blood 0.71 mg/dL (0.40-1.00); Potassium, Blood 4.2 mmol/L (3.5-5.5); Thyroid Stimulating Hormone 2.94 uIU/mL (0.360-4.800)
== END 2023-02-06 09:08 | disposition home or self-care (01) ==
LOC: ATC 01:59
PROVIDERS: Family Medicine
DX: K94.19 Other complications of enterostomy (principal); E86.0 Dehydration; K21.9 Gastro-esophageal reflux disease without esophagitis; E55.9 Vitamin D deficiency, unspecified; E61.1 Iron deficiency; M81.0 Age-related osteoporosis without current pathological fracture; Z87.891 Personal history of nicotine dependence; Z79.899 Other long term (current) drug therapy
CPT/HCPCS: 80048; 84443; 96360; J1642; J7120

== ENCOUNTER 2023-02-11 04:04 | Day surgery (SDC) | payer OTHER ==
[2023-02-11 08:40] VITALS: BP 102/70
[2023-02-11 09:50] LABS: Bun/Creatinine Ratio 23.5 (12.0-20.0); Calcium, Blood 9.4 mg/dL (8.5-10.1); Creatinine, Blood 0.77 mg/dL (0.40-1.00); Potassium, Blood 4.2 mmol/L (3.5-5.5)
== END 2023-02-11 09:45 | disposition home or self-care (01) ==
LOC: ATC 04:04
PROVIDERS: Family Medicine
DX: E86.0 Dehydration (principal); Z43.2 Encounter for attention to ileostomy; E89.0 Postprocedural hypothyroidism; E61.1 Iron deficiency
CPT/HCPCS: 80048; 83735; 96360; J1642; J7120

== ENCOUNTER 2023-02-14 02:34 | Day surgery (SDC) | payer OTHER ==
[2023-02-14 08:18] VITALS: BP 107/70
== END 2023-02-14 09:32 | disposition home or self-care (01) ==
LOC: ATC 02:34
DX: E86.0 Dehydration (principal); K94.19 Other complications of enterostomy; E89.0 Postprocedural hypothyroidism; K21.9 Gastro-esophageal reflux disease without esophagitis; Z88.5 Allergy status to narcotic agent; Z87.891 Personal history of nicotine dependence; Z79.899 Other long term (current) drug therapy
CPT/HCPCS: 96360; J1642; J7120

== ENCOUNTER 2023-03-07 05:10 | Day surgery (SDC) | payer MEDICARE, OTHER ==
[2023-03-07 15:08] VITALS: BP 113/67
[2023-03-07 15:57] LABS: Bun/Creatinine Ratio 13.3 (12.0-20.0); Calcium, Blood 8.8 mg/dL (8.5-10.1); Creatinine, Blood 0.75 mg/dL (0.40-1.00); Potassium, Blood 3.9 mmol/L (3.5-5.5)
== END 2023-03-07 16:11 | disposition home or self-care (01) ==
LOC: ATC 05:10
PROVIDERS: Family Medicine
DX: E86.0 Dehydration (principal); Z43.2 Encounter for attention to ileostomy; E89.0 Postprocedural hypothyroidism; K21.9 Gastro-esophageal reflux disease without esophagitis; Z88.5 Allergy status to narcotic agent; Z87.891 Personal history of nicotine dependence; Z79.890 Hormone replacement therapy; Z79.899 Other long term (current) drug therapy
CPT/HCPCS: 80048; 96360; J1642; J7120

== ENCOUNTER → 2023-04-11 | Outpatient (CLI) | payer MEDICARE, OTHER | LOC: LAB SHORT 09:32 → LAB 09:32 | DX: N39.0 Urinary tract infection, site not specified (principal) | CPT/HCPCS: 87086 ==

== ENCOUNTER 2023-04-24 05:09 | Day surgery (SDC) | payer MEDICARE, OTHER ==
[2023-04-24] MEDS ORDERED: Lactated Ringer's 1,000 ML IV SCH (07:00)
[2023-04-24 16:08] VITALS: BP 104/69
[2023-04-24 17:23] LABS: Bun/Creatinine Ratio 25.8 (12.0-20.0); Calcium, Blood 9.2 mg/dL (8.5-10.1); Creatinine, Blood 0.77 mg/dL (0.40-1.00); Potassium, Blood 4.1 mmol/L (3.5-5.5)
== END 2023-04-24 17:14 | disposition home or self-care (01) ==
LOC: ATC 05:09
PROVIDERS: Family Medicine
DX: K94.19 Other complications of enterostomy (principal); E89.0 Postprocedural hypothyroidism; E61.1 Iron deficiency; E86.0 Dehydration
CPT/HCPCS: 80048; 96360; J1642; J7120

== ENCOUNTER 2023-07-09 00:53 | Day surgery (SDC) | payer MEDICARE ==
[2023-07-09 10:05] VITALS: BP 154/141
== END 2023-07-09 11:15 | disposition home or self-care (01) ==
LOC: ATC 00:53
DX: E86.0 Dehydration (principal); Z43.2 Encounter for attention to ileostomy; Z88.8 Allergy status to other drugs, medicaments and biological substances; Z88.5 Allergy status to narcotic agent; Z87.891 Personal history of nicotine dependence; Z79.899 Other long term (current) drug therapy; Z79.890 Hormone replacement therapy

== ENCOUNTER 2023-07-12 05:06 | Day surgery (SDC) | payer MEDICARE ==
[2023-07-12 09:54] VITALS: BP 123/79
== END 2023-07-12 11:12 | disposition home or self-care (01) ==
LOC: ATC 05:06
DX: K94.19 Other complications of enterostomy (principal); Z87.891 Personal history of nicotine dependence; Z88.8 Allergy status to other drugs, medicaments and biological substances; Z88.5 Allergy status to narcotic agent; Z79.890 Hormone replacement therapy; Z79.899 Other long term (current) drug therapy

== ENCOUNTER 2023-08-16 06:22 | Day surgery (SDC) | payer MEDICARE ==
[2023-08-16] MEDS ORDERED: Lactated Ringer's 1,000 ML IV SCH (06:55)
[2023-08-16 09:58] VITALS: BP 111/73
== END 2023-08-16 11:06 | disposition home or self-care (01) ==
LOC: ATC 06:22
DX: K94.19 Other complications of enterostomy (principal); E86.0 Dehydration; M81.0 Age-related osteoporosis without current pathological fracture; G43.909 Migraine, unspecified, not intractable, without status migrainosus; Z88.8 Allergy status to other drugs, medicaments and biological substances; Z87.891 Personal history of nicotine dependence
CPT/HCPCS: 96360; J1642; J7120

== ENCOUNTER 2023-08-23 02:08 | Day surgery (SDC) | payer MEDICARE ==
[2023-08-23] MEDS ORDERED: Lactated Ringer's 1,000 ML IV SCH (07:15)
[2023-08-23 10:13] VITALS: BP 119/72
== END 2023-08-23 11:31 | disposition home or self-care (01) ==
LOC: ATC 02:08
DX: K94.19 Other complications of enterostomy (principal); Z88.8 Allergy status to other drugs, medicaments and biological substances; Z87.891 Personal history of nicotine dependence
CPT/HCPCS: 96360; J1642; J7120

== ENCOUNTER 2023-08-27 00:55 | Day surgery (SDC) | payer MEDICARE ==
[2023-08-27] MEDS ORDERED: Lactated Ringer's 1,000 ML IV SCH (07:05)
[2023-08-27 10:37] VITALS: BP 102/62
== END 2023-08-27 11:45 | disposition home or self-care (01) ==
LOC: ATC 00:55
DX: K94.19 Other complications of enterostomy (principal); M81.0 Age-related osteoporosis without current pathological fracture; Z88.8 Allergy status to other drugs, medicaments and biological substances; Z87.891 Personal history of nicotine dependence
CPT/HCPCS: 96360; J1642; J7120

== ENCOUNTER 2023-09-03 00:46 | Day surgery (SDC) | payer MEDICARE ==
[2023-09-03] MEDS ORDERED: Lactated Ringer's 1,000 ML IV SCH (07:15)
[2023-09-03 11:00] VITALS: BP 113/81
== END 2023-09-03 12:05 | disposition home or self-care (01) ==
LOC: ATC 00:46
DX: K94.19 Other complications of enterostomy (principal); Z88.5 Allergy status to narcotic agent; Z88.8 Allergy status to other drugs, medicaments and biological substances; Z87.891 Personal history of nicotine dependence; Z79.899 Other long term (current) drug therapy
CPT/HCPCS: 96360; J1642; J7120

== ENCOUNTER 2023-09-10 09:30 | Day surgery (SDC) | payer MEDICARE ==
[~2023-09-10 09:30] MED LIST changes: +Lactated Ringer's 1,000 ML IV SCH
--- NOTE | 2023-09-10 15:19 | NUR ---
1512: PT ARRIVED FOR IV FLUIDS AND STATES SHE IS HAVING SEVERE [employer] CRAMPS. PT REPORTS DRINKING LOTS OF FLUIDS, TO INCLUDE 12 BOTTLES SO FAR TODAY. PT STATES SHE HAS LEFT NUMEROUS MESSAGES WITH HER PCP AND HER PCP USUALLY CHECKS HER MAGNESIUM LEVELS WHEN SHE HAS THESE CRAMPS. I CALLED [facility]. NO MA OR MD WAS AVAILABLE TO SPEAK WITH BUT SURFACE PLATE INSPECTOR SENT A MESSAGE BACK TO THEM FOR A POSSIBLE MAGNESIUM LAB ORDER. [facility] OFFICE TO CALL BACK WITH ORDERS IF NECESSARY
[2023-09-10 15:21] VITALS: BP 113/73
== END 2023-09-10 16:08 | disposition home or self-care (01) ==
LOC: ATC 09:30
DX: K94.19 Other complications of enterostomy (principal); M81.0 Age-related osteoporosis without current pathological fracture; Z88.8 Allergy status to other drugs, medicaments and biological substances; Z87.891 Personal history of nicotine dependence
CPT/HCPCS: 96360; J1642; J7120

== ENCOUNTER 2023-09-17 02:52 | Day surgery (SDC) | payer MEDICARE ==
[~2023-09-17 02:52] MED LIST changes: -Lactated Ringer's 1,000 ML IV SCH
[2023-09-17] MEDS ORDERED: Lactated Ringer's 1,000 ML IV SCH (07:25)
[2023-09-17 10:25] VITALS: BP 97/77
== END 2023-09-17 10:47 | disposition home or self-care (01) ==
LOC: ATC 02:52
DX: K94.19 Other complications of enterostomy (principal); Z87.891 Personal history of nicotine dependence; Z88.5 Allergy status to narcotic agent; Z88.8 Allergy status to other drugs, medicaments and biological substances
CPT/HCPCS: 83735; 96360; J1642; J7120

== ENCOUNTER 2023-09-24 03:30 | Day surgery (SDC) | payer MEDICARE ==
[2023-09-24] MEDS ORDERED: Lactated Ringer's 1,000 ML IV SCH (07:05)
[2023-09-24 10:16] VITALS: BP 108/79
--- NOTE | 2023-09-24 12:23 | NUR ---
STOP TIME [id number]
== END 2023-09-24 11:36 | disposition home or self-care (01) ==
LOC: ATC 03:30
DX: K94.19 Other complications of enterostomy (principal); M81.0 Age-related osteoporosis without current pathological fracture; G43.909 Migraine, unspecified, not intractable, without status migrainosus; Z88.8 Allergy status to other drugs, medicaments and biological substances; Z87.891 Personal history of nicotine dependence
CPT/HCPCS: 96360; J1642; J7120

== ENCOUNTER 2023-09-27 01:51 | Day surgery (SDC) | payer MEDICARE ==
[2023-09-27] MEDS ORDERED: Lactated Ringer's 1,000 ML IV SCH (07:05)
[2023-09-27 09:55] VITALS: BP 103/60
== END 2023-09-27 11:08 | disposition home or self-care (01) ==
LOC: ATC 01:51
DX: K94.19 Other complications of enterostomy (principal); F17.210 Nicotine dependence, cigarettes, uncomplicated; Z79.899 Other long term (current) drug therapy; Z88.8 Allergy status to other drugs, medicaments and biological substances
CPT/HCPCS: 96360; J1642; J7120

== ENCOUNTER 2023-10-25 03:08 | Day surgery (SDC) | payer MEDICARE ==
[2023-10-25] MEDS ORDERED: Lactated Ringer's 1,000 ML IV SCH (07:20)
[2023-10-25 10:03] VITALS: BP 104/69
== END 2023-10-25 11:23 | disposition home or self-care (01) ==
LOC: ATC 03:08
DX: K94.19 Other complications of enterostomy (principal); Z88.5 Allergy status to narcotic agent; Z88.8 Allergy status to other drugs, medicaments and biological substances; Z91.041 Radiographic dye allergy status; Z87.891 Personal history of nicotine dependence
CPT/HCPCS: 96360; J1642; J7120

== ENCOUNTER 2023-10-29 01:44 | Day surgery (SDC) | payer MEDICARE ==
[2023-10-29] MEDS ORDERED: Lactated Ringer's 1,000 ML IV SCH (07:05)
[2023-10-29 09:28] VITALS: BP 114/69
== END 2023-10-29 10:32 | disposition home or self-care (01) ==
LOC: ATC 01:44
DX: K94.19 Other complications of enterostomy (principal); Z88.8 Allergy status to other drugs, medicaments and biological substances; Z87.891 Personal history of nicotine dependence
CPT/HCPCS: 96360; J1642; J7120

== ENCOUNTER 2023-11-18 02:58 | Day surgery (SDC) | payer MEDICARE ==
[2023-11-18] MEDS ORDERED: Lactated Ringer's 1,000 ML IV SCH (07:10)
[2023-11-18 09:53] VITALS: BP 128/93
== END 2023-11-18 11:08 | disposition home or self-care (01) ==
LOC: ATC 02:58
DX: K94.19 Other complications of enterostomy (principal); N30.00 Acute cystitis without hematuria; G89.29 Other chronic pain; M54.50 Low back pain, unspecified; H53.2 Diplopia; G43.909 Migraine, unspecified, not intractable, without status migrainosus; M79.7 Fibromyalgia; Z87.891 Personal history of nicotine dependence; Z79.899 Other long term (current) drug therapy; Z88.8 Allergy status to other drugs, medicaments and biological substances; Z91.048 Other nonmedicinal substance allergy status; Z88.5 Allergy status to narcotic agent; Z91.041 Radiographic dye allergy status; Z85.038 Personal history of other malignant neoplasm of large intestine; Z85.43 Personal history of malignant neoplasm of ovary; Z85.841 Personal history of malignant neoplasm of brain; Z90.710 Acquired absence of both cervix and uterus
CPT/HCPCS: 96360; J1642; J7120

== ENCOUNTER → 2023-11-21 | Outpatient (CLI) | payer MEDICARE ==
[2023-11-21 17:41] LABS: Source, Urine Voided
[2023-11-21 18:39] LABS: Appearance, Urine Hazy (Clear); Bilirubin, Urine Neg (Neg); Blood, Urine Neg (Neg); Glucose Qualitative, Urine Neg (Neg); Ketones, Urine Neg (Neg); Leukocyte Esterase, Urine 3+ (Neg); Nitrite, Urine Neg (Neg); Protein, Urine Neg (Neg); Urobilinogen, Urine NORM (Normal)
[2023-11-21 18:53] LABS: Bacteria Many /hpf; Color, Urine Pale Yellow (P-Yellow); Red Blood Cells, Urine 0-2 /hpf (0-2); Squamous Epithelial Cells Few /hpf (Few)
[2023-11-21 20:09] LABS: Candida Group, PCR NOT DETECTED (NOT DETECT)
[2023-11-21 20:21] LABS: Bacterial Vaginosis PCR Positive (NEGATIVE); Candida glabrata-krusei, PCR DETECTED (NOT DETECT)
== END ==
LOC: LAB SHORT 17:38 → LAB 17:38
PROVIDERS: Family Medicine
DX: R31.9 Hematuria, unspecified (principal); R30.0 Dysuria; R82.90 Unspecified abnormal findings in urine
CPT/HCPCS: 81001; 87086; 87481; 87661; 87801

== ENCOUNTER 2023-12-11 04:47 | Day surgery (SDC) | payer MEDICARE ==
[2023-12-11] MEDS ORDERED: Lactated Ringer's 1,000 ML IV SCH (07:10)
[2023-12-11 13:36] VITALS: BP 118/74
[2023-12-11 15:29] LABS: Bun/Creatinine Ratio 11.5 (12.0-20.0); Calcium, Blood 9.7 mg/dL (8.5-10.1); Creatinine, Blood 0.78 mg/dL (0.40-1.00); Potassium, Blood 3.8 mmol/L (3.5-5.5)
== END 2023-12-11 14:45 | disposition home or self-care (01) ==
LOC: ATC 04:47
PROVIDERS: Family Medicine
DX: K94.19 Other complications of enterostomy (principal); N30.00 Acute cystitis without hematuria; G89.29 Other chronic pain; M54.50 Low back pain, unspecified; M81.0 Age-related osteoporosis without current pathological fracture; G43.009 Migraine without aura, not intractable, without status migrainosus; M79.7 Fibromyalgia; Z79.899 Other long term (current) drug therapy; Z87.891 Personal history of nicotine dependence; Z88.8 Allergy status to other drugs, medicaments and biological substances; Z88.5 Allergy status to narcotic agent; Z90.710 Acquired absence of both cervix and uterus; Z90.49 Acquired absence of other specified parts of digestive tract
CPT/HCPCS: 80048; 96360; J1642; J7120